=== PATIENT | male | born 1930 | race Caucasian/White ===

== ENCOUNTER → 2017-05-21 | Outpatient (CLI) | payer OTHER | LOC: FIMAGING 09:35 | PROVIDERS: ATTEND Internal Medicine | DX: I71.4 Abdominal aortic aneurysm, without rupture (principal) ==

== ENCOUNTER 2017-08-05 11:21 | Emergency (ER) | payer OTHER ==
[2017-08-05 13:09] LABS: ABSOLUTE IMMATURE GRANULOCYTES 0.07 10^3/uL (0.00-0.10); ADD DIFF? NO; ADD MORPH? NO; ADD SCAN? NO; ATYPICAL LYMPHOCYTE FLAG 10 (0-99); FRAGMENT RBC FLAG 0 (0-99); HEMATOCRIT 44.9 % (40.0-51.0); HEMOGLOBIN 15.4 g/dL (13.7-17.5); LEFT SHIFT FLG 10 (0-99); LIPEMIA HEMOLYSIS FLAG 90 (0-99); MEAN CELL HEMOGLOBIN 32.7 pg (27.9-34.1); MEAN CELL HEMOGLOBIN CONCENTR. 34.3 g/dL (32.4-36.7); MEAN CELL VOLUME 95.3 fL (81.5-99.8); MEAN PLATELET VOLUME 10.7 fL (8.7-11.7); PLATELET CLUMPS FLAG 0 (0-99); PLATELET COUNT 242 10^3/uL (150-400); RED BLOOD CELL COUNT 4.71 10^6/uL (4.40-6.38); RED CELL DISTRIBUTION WIDTH 12.5 % (11.5-15.2)
[2017-08-05] MEDS ORDERED: LABETALOL HCL 5 MG/ML 20 ML MDV IVP ONE (13:11)
--- NOTE | 2017-08-05 13:14 | EDPHY ---
H & P Time Seen by Provider: 08/05/17 13:05 HPI/ROS: CHIEF COMPLAINT: Hypertension HISTORY OF PRESENT ILLNESS: The patient is a 86-year-old male with a history of coronary artery disease status post CABG in 2007. This was complicated by perioperative stroke. He has an ongoing history of hypertension, chronic renal insufficiency and dyslipidemia. He has a mild 0.7 cm aortic aneurysm. The patient went for routine visit with this Cardiology today. He states since waking up this morning he has felt "out of it." He reports feeling lightheaded and dizzy. He did not have an episode of syncope. He denies any chest pain or shortness of breath. No abdominal pain. No weakness or numbness. No headache. At the patient's cardiology appointment Dr. Kelley noted the patient's blood pressure was elevated at [address] Patient reported the Dr. Kelley that his vision was slightly decreased but he denies any visual change to me. The patient states that he discontinued his metoprolol 4-5 weeks ago. REVIEW OF SYSTEMS: My complete review of systems is negative except as mentioned in the HPI. Past Medical/Surgical History: Includes hypertension, high trial, coronary artery disease, AFib, CVA, chronic kidney disease, mitral valve echo density, prostate cancer Past surgical history: Includes CABG, appendectomy, cholecystectomy, orthopedic surgery, prostatectomy, cataract surgery Social history: Patient smoke Smoking Status: Never smoked Physical Exam: 171/96, 63, 18, 36.3, 98 GENERAL: No acute distress, alert. HEENT: Eyes normal to inspection, normal pharynx, no signs of dehydration. NECK: No thyromegaly, no lymphadenopathy, supple. RESPIRATORY: Clear to auscultation bilaterally, no rales, rhonchi or wheezing. CVS: Regular rate and rhythm, no rubs, murmurs, or gallops. Equal pulses in both upper extremities. ABDOMEN: Soft, nontender, nondistended, no organomegaly. No pulsatile mass. BACK: Patient has some superior mid scratches.(patient states he gave these to himself.) Normal to inspection, no CVA tenderness. SKIN: Normal color, no rash, warm, dry. No pallor. EXTREMITIES: No pedal edema, no calf tenderness, no Homans sign or cords, no joint swelling. NEURO/PSYCH: Higher functions: Alert and Oriented x3. Normal speech and cognition. Normal mood and affect. Cranial nerves: Normal as tested. Cerebellar: Normal as tested. Good finger to nose, good [id number], normal gait. Peripheral exam: Normal motor exam. Normal sensation. Normal reflexes. Constitutional: Initial Vital Signs Temperature (C) 36.3 C 08/05/17 11:35 Heart Rate 63 08/05/17 11:35 Respiratory Rate 18 08/05/17 11:35 Blood Pressure 171/96 H 08/05/17 11:35 O2 Sat (%) 98 08/05/17 11:35 O2 Delivery Mode Room Air Allergies/Adverse Reactions: No Known Allergies Allergy (Verified 08/05/17 11:35) Home Medications: Medication Instructions Recorded Calcium Carbonate [Tums 500MG (*)] 500 mg PO DAILY 03/09/13 Aspirin [Aspirin 81mg (*)] 162 mg PO DAILY 03/11/13 Docusate Sodium [Colace 100 MG (*)] 100 mg PO DAILY 03/11/13 Multivitamins [Multivitamin (*)] 1 each PO DAILY 03/11/13 Atorvastatin Calcium [Lipitor 40 40 mg PO HS 07/30/15 mg (*)] Metoprolol Succinate Xr [Toprol Xl 25 mg PO DAILY 07/30/15 25 mg (*)] Metoprolol Succinate Xr [Toprol Xl 25 mg PO DAILY 15 Days #30 tab.sr 08/05/17 25 mg (*)] Medical Decision Making - Diagnostics Imaging Results: Imaging Impressions Chest X-Ray 08/05/17 13:01 Impression: Nothing acute identified. Head CT 08/05/17 13:15 Impression: 1. Old right occipital infarct, right posterior cerebral artery territory. 2. No definite acute infarct, acute hemorrhage, hydrocephalus or mass effect. 3. Cerebrovascular atherosclerosis. Findings and recommendations discussed with Emergency Department physician, Princess Gruber at 1524 hour, 08/05/2017. Final report concurs with initial preliminary interpretation. ED Course/Re-evaluation: In the emergency room in discussed possible etiologies with the patient. I answered all his questions. An IV was placed. Laboratory studies were obtained. Head CT, chest x-ray and EKG were ordered. Patient was given labetalol 10 mg IV. EKG from 1056: Rate 68. First-degree AV block. No ST or T-wave abnormalities pain Patient's laboratory studies were notable for creatinine 1.4. His CBC was otherwise unremarkable. Troponin was negative. Chest x-ray: No acute disease noted. Repeat blood pressure was 151/87. Head CT: No acute disease noted. Old infarct. The patient was doing well. He had no new complaints. I discussed case with Dr. Busch. Recommended placed the patient on metoprolol 25 mg twice daily. I discussed this plan with the patient. He felt comfortable being discharged. Differential Diagnosis: My differential includes but is not limited to hypertensive emergency, hypertensive urgency, hypertension, CVA, ACS, acute [place], dissection, aneurysm - Data Points Laboratory Results: Laboratory Results 08/05/17 12:50 08/05/17 12:50 08/05/17 08/05/17 12:50 12:50 WBC 6.83 10^3/uL 10^3/uL (3.80-9.50) RBC 4.71 10^6/uL 10^6/uL (4.40-6.38) Hgb 15.4 g/dL g/dL (13.7-17.5) Hct 44.9 % % (40.0-51.0) MCV 95.3 fL fL (81.5-99.8) MCH 32.7 pg pg (27.9-34.1) MCHC 34.3 g/dL g/dL (32.4-36.7) RDW 12.5 % % (11.5-15.2) Plt Count 242 10^3/uL 10^3/uL (150-400) MPV 10.7 fL fL (8.7-11.7) Neut % (Auto) 68.9 % % (39.3-74.2) Lymph % (Auto) 16.7 % % (15.0-45.0) [place] % (Auto) 9.8 % % (4.5-13.0) Eos % (Auto) 3.2 % % (0.6-7.6) Baso % (Auto) 0.4 % % (0.3-1.7) Nucleat RBC Rel Count 0.0 % % (0.0-0.2) Absolute Neuts (auto) 4.70 10^3/uL 10^3/uL (1.70-6.50) Absolute Lymphs (auto) 1.14 10^3/uL 10^3/uL (1.00-3.00) Absolute Monos (auto) 0.67 10^3/uL 10^3/uL (0.30-0.80) Absolute Eos (auto) 0.22 10^3/uL 10^3/uL (0.03-0.40) Absolute Basos (auto) 0.03 10^3/uL 10^3/uL (0.02-0.10) Absolute Nucleated RBC 0.00 10^3/uL 10^3/uL (0-0.01) Immature Gran % 1.0 % % (0.0-1.1) Immature Gran # 0.07 10^3/uL 10^3/uL (0.00-0.10) Sodium 149 mEq/L H mEq/L (134-144) Potassium 4.2 mEq/L mEq/L (3.5-5.2) Chloride 113 mEq/L H mEq/L (97-110) Carbon Dioxide 23 mEq/l mEq/l (22-31) Anion Gap 13 mEq/L mEq/L (8-16) BUN 23 mg/dL mg/dL (7-23) Creatinine 1.4 mg/dL H mg/dL (0.7-1.3) Estimated GFR 48 Glucose 91 mg/dL mg/dL (70-100) Calcium 9.4 mg/dL mg/dL (8.5-10.4) Troponin I < 0.012 ng/mL ng/mL (0.000-0.034) Medications Given: Discontinued Medications Labetalol HCl (Trandate Injection) 10 mg IVP ONCE ONE Stop: 08/05/17 13:12 Last Admin: 08/05/17 13:26 Dose: 10 mg Departure - Departure Disposition: Home, Routine, Self-Care Clinical Impression: Hypertensive urgency Hypertension Qualifiers: Hypertension type: unspecified Qualified Code(s): I10 - Essential (primary) hypertension Condition: Good Instructions: Hypertension (ED) Additional Instructions: Return with increasing chest pain, shortness of breath, lightheadedness, dizziness or any other concerns. Referrals: Marquis Diamond MD [Primary Care Provider] - 2-3 days without fail Prescriptions: Metoprolol Succinate Xr [Toprol Xl 25 mg (*)] 25 mg PO DAILY 15 Days #30 tab.sr
[2017-08-05 13:28] LABS: ANION GAP 13 mEq/L (8-16); CALCIUM 9.4 mg/dL (8.5-10.4); CARBON DIOXIDE 23 mEq/l (22-31); CHLORIDE 113 mEq/L (97-110); CREATININE 1.4 mg/dL (0.7-1.3); GLOMERULAR FILTRATION RATE 48; GLUCOSE 91 mg/dL (70-100); POTASSIUM 4.2 mEq/L (3.5-5.2); SODIUM 149 mEq/L (134-144)
[2017-08-05 13:39] LABS: TROPONIN I < 0.012 ng/mL (0.000-0.034)
--- NOTE | 2017-08-05 14:15 | CPEKG ---
Heart Rate: 69 RR Interval: 870 P-R Interval: 232 QRSD Interval: 82 QT Interval: 436 QTC Interval: 467 P [place]: 47 QRS [place]: 37 T Wave [place]: 116 EKG Severity - ABNORMAL ECG - EKG Impression: SINUS RHYTHM EKG Impression: FIRST DEGREE AV BLOCK EKG Impression: NONSPECIFIC T ABNORMALITIES, LATERAL LEADS Electronically Signed By: Syed Blanchard 06-Aug-2017 20:51:23
[2017-08-05 14:21] VITALS: RESP 15
[2017-08-05 16:12] VITALS: BP 153/85; PULSE 71; TEMP 97.9; O2SAT 95
== END 2017-08-05 16:12 | disposition home or self-care (01) ==
DX: I12.9 Hypertensive chronic kidney disease with stage 1 through stage 4 chronic kidney disease, or unspecified chronic kidney disease (principal); I16.0 Hypertensive urgency; I25.810 Atherosclerosis of coronary artery bypass graft(s) without angina pectoris; N18.9 Chronic kidney disease, unspecified; Z79.82 Long term (current) use of aspirin; Z85.46 Personal history of malignant neoplasm of prostate; Z86.73 Personal history of transient ischemic attack (TIA), and cerebral infarction without residual deficits
CPT/HCPCS: 70450; 71010; 93005; 96374; 99285; J3490

== ENCOUNTER 2017-08-17 11:05 | Inpatient (IN) | payer OTHER ==
[2017-08-17] MEDS ORDERED: NS 500 ML IV ONE (11:22)
--- NOTE | 2017-08-17 11:25 | CPEKG ---
Heart Rate: 70 RR Interval: 857 P-R Interval: 220 QRSD Interval: 88 QT Interval: 408 QTC Interval: 441 P [place]: 50 QRS [place]: 44 T Wave [place]: 149 EKG Severity - ABNORMAL ECG - EKG Impression: SINUS RHYTHM EKG Impression: ATRIAL PREMATURE COMPLEX EKG Impression: FIRST DEGREE AV BLOCK EKG Impression: NONSPECIFIC T ABNORMALITIES, LATERAL LEADS Electronically Signed By: Nam Vasques 17-Aug-2017 19:48:46
--- NOTE | 2017-08-17 11:28 | EDPHY ---
HPI/HX/ROS/PE/MDM Narrative: CHIEF COMPLAINT: Lightheaded HPI: The patient is an 86 y/o male with a history of hypertension and CAD post CABG in 2007 that was complicated by a perioperative stroke. He was recently seen in this ED on 08/05/17, 2 weeks ago, for pre-syncope. During this visit he had hypertension and had a normal chest x-ray and head CT. Prior to this visit he accidently stopped taking his Metoprolol for 3.5 weeks. After the ED visit he started taking it twice a day again. For the past week he has been feeling lightheaded, lethargic, and has been sleeping more than normal. Denies cough, flu like symptoms, chest pain, headache, paresthesias, numbness or other pertinent symptoms. Prior medical records reviewed including ED visit from Dr. Gruber on 08/05/17. REVIEW OF SYSTEMS: Aside from elements discussed in the HPI, a comprehensive 10-point review of systems was reviewed and is negative. PMH: Hypertension CAD, atrial fibrillation, CVA, chronic kidney disease, mitral valve echo density, prostate cancer PSH: CABG, appendectomy, cholecystectomy, prostatectomy SOCIAL HISTORY: Daughter at bedside, lives in [place], retired PHYSICAL EXAM: General: Patient is alert, in no acute distress. ENT: Eyes are normal to inspection. ENT inspection normal. Neck: Normal inspection. Full range of motion. Respiratory: No respiratory distress. Breath sounds normal bilaterally. Cardiovascular: Regular rate and rhythm. Strong peripheral pulses. Normal cap refill. Abdomen: The abdomen is nontender to palpation. There are no peritoneal signs. There are normal bowel sounds. Back: Normal to inspection. No tenderness to palpation. Skin: Normal color. No rash. Warm and dry. Extremities: Normal appearance. Full range of motion. Neuro: Oriented x3. Normal motor function. Normal sensory function. 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 No pronator drift. Portions of this note were transcribed by an ED scribe. I personally performed the history, physical exam, and medical decision making; and confirm the accuracy of the information in the transcribed note. ED Course: 1118: EKG was ordered and interpreted by myself. Please see [facility] system for official reading. 1413: Patient has an abnormal gait during road test. Brain MRI ordered. Patient' s labs are normal, TSH pending at this time. 1419: Consulted with hospitalist service, Dr. Shin accepts admission of this patient for weakness. 1425: Reassessed patient and discussed plan for Brain MRI and admission. Patient and his daughter are comfortable with this plan. MDM: This patient presents with gradual decline in alertness, energy level and ability to get out of bed. He has undergone a previous workup in the last two weeks for these symptoms which was negative, yet he continues to worsen. My exam reveals no neurologic deficits and the patient does not complain of pain or infectious symptoms. The differential here is quite broad, but I see no signs of acute CVA, ACS, PNA, sepsis, influenza, UTI or anemia. The patient clearly requires admission for further workup, and I have ordered an MRI to aid the diagnostic process. I have admitted the patient prior to this study being performed, but would not be surprised if this showed a sub-acute CVA given lack of other abnormality and history of CVA in the past. If true, the patient would certainly not be a candidate for tPA given no clear definitive onset of symptoms. - Data Points Imaging: I viewed and interpreted images myself Laboratory Results: Laboratory Results 08/17/17 11:25 08/17/17 11:25 08/17/17 08/17/17 08/17/17 11:25 11:25 11:25 WBC 8.97 10^3/uL 10^3/uL (3.80-9.50) RBC 5.14 10^6/uL 10^6/uL (4.40-6.38) Hgb 17.0 g/dL g/dL (13.7-17.5) Hct 48.1 % % (40.0-51.0) MCV 93.6 fL fL (81.5-99.8) MCH 33.1 pg pg (27.9-34.1) MCHC 35.3 g/dL g/dL (32.4-36.7) RDW 12.6 % % (11.5-15.2) Plt Count 245 10^3/uL 10^3/uL (150-400) MPV 10.6 fL fL (8.7-11.7) Neut % (Auto) 68.1 % % (39.3-74.2) Lymph % (Auto) 16.7 % % (15.0-45.0) [place] % (Auto) 11.6 % % (4.5-13.0) Eos % (Auto) 2.9 % % (0.6-7.6) Baso % (Auto) 0.4 % % (0.3-1.7) Nucleat RBC Rel Count 0.0 % % (0.0-0.2) Absolute Neuts (auto) 6.10 10^3/uL 10^3/uL (1.70-6.50) Absolute Lymphs (auto) 1.50 10^3/uL 10^3/uL (1.00-3.00) Absolute Monos (auto) 1.04 10^3/uL H 10^3/uL (0.30-0.80) Absolute Eos (auto) 0.26 10^3/uL 10^3/uL (0.03-0.40) Absolute Basos (auto) 0.04 10^3/uL 10^3/uL (0.02-0.10) Absolute Nucleated RBC 0.00 10^3/uL 10^3/uL (0-0.01) Immature Gran % 0.3 % % (0.0-1.1) Immature Gran # 0.03 10^3/uL 10^3/uL (0.00-0.10) Sodium 149 mEq/L H mEq/L (134-144) Potassium 4.1 mEq/L mEq/L (3.5-5.2) Chloride 112 mEq/L H mEq/L (97-110) Carbon Dioxide 21 mEq/l L mEq/l (22-31) Anion Gap 16 mEq/L mEq/L (8-16) BUN 35 mg/dL H mg/dL (7-23) Creatinine 1.7 mg/dL H mg/dL (0.7-1.3) Estimated GFR 39 Glucose 105 mg/dL H mg/dL (70-100) Calcium 9.8 mg/dL mg/dL (8.5-10.4) Troponin I < 0.012 ng/mL ng/mL (0.000-0.034) TSH 3.500 uIU/mL uIU/mL (0.465-4.680) Medications Given: Discontinued Medications Sodium Chloride (Ns) 500 mls @ 0 mls/hr IV EDNOW ONE; Wide Open PRN Reason: Protocol Stop: 08/17/17 11:23 Last Admin: 08/17/17 11:27 Dose: 500 mls General Time Seen by Provider: 08/17/17 11:23 Initial Vital Signs: Initial Vital Signs Temperature (C) 36.4 C 08/17/17 11:08 Heart Rate 71 08/17/17 11:08 Respiratory Rate 18 08/17/17 11:08 Blood Pressure 125/72 H 08/17/17 11:08 O2 Sat (%) 95 08/17/17 11:08 O2 Delivery Mode Room Air Allergies/Adverse Reactions: No Known Allergies Allergy (Verified 08/17/17 11:07) Home Medications: Medication Instructions Recorded Calcium Carbonate [Tums 500MG (*)] 500 mg PO DAILY 03/09/13 Aspirin [Aspirin 81mg (*)] 162 mg PO HS 03/11/13 Docusate Sodium [Colace 100 MG (*)] 100 mg PO HS 03/11/13 Multivitamins [Multivitamin (*)] 1 each PO DAILY 03/11/13 Atorvastatin Calcium [Lipitor 40 40 mg PO HS 07/30/15 mg (*)] Metoprolol Succinate Xr [Toprol Xl 12.5 mg PO BID 08/17/17 25 mg (*)] Sildenafil Citrate [Revatio 20 MG 60 - 80 mg PO DAILY PRN 08/17/17 (*)] Departure - Departure Disposition: [facility] Clinical Impression: Weakness, Lightheaded Condition: Fair Report Scribed for: Surendra Lerner Report Scribed by: Ermelinda Marquez Date of Report: 08/17/17 Time of Report: 11:28
[2017-08-17 11:40] LABS: % IMMATURE GRANULYOCYTES 0.3 % (0.0-1.1); ABSOLUTE IMMATURE GRANULOCYTES 0.03 10^3/uL (0.00-0.10); ADD DIFF? NO; ADD MORPH? NO; ADD SCAN? NO; ATYPICAL LYMPHOCYTE FLAG 0 (0-99); FRAGMENT RBC FLAG 0 (0-99); HEMATOCRIT 48.1 % (40.0-51.0); LEFT SHIFT FLG 0 (0-99); LIPEMIA HEMOLYSIS FLAG 90 (0-99); MEAN CELL HEMOGLOBIN 33.1 pg (27.9-34.1); MEAN CELL HEMOGLOBIN CONCENTR. 35.3 g/dL (32.4-36.7); MEAN CELL VOLUME 93.6 fL (81.5-99.8); MEAN PLATELET VOLUME 10.6 fL (8.7-11.7); PLATELET CLUMPS FLAG 10 (0-99); PLATELET COUNT 245 10^3/uL (150-400); RED BLOOD CELL COUNT 5.14 10^6/uL (4.40-6.38); RED CELL DISTRIBUTION WIDTH 12.6 % (11.5-15.2)
[2017-08-17 11:59] LABS: ANION GAP 16 mEq/L (8-16); CALCIUM 9.8 mg/dL (8.5-10.4); CARBON DIOXIDE 21 mEq/l (22-31); CHLORIDE 112 mEq/L (97-110); CREATININE 1.7 mg/dL (0.7-1.3); GLOMERULAR FILTRATION RATE 39; GLUCOSE 105 mg/dL (70-100); POTASSIUM 4.1 mEq/L (3.5-5.2); SODIUM 149 mEq/L (134-144)
[2017-08-17 12:09] LABS: TROPONIN I < 0.012 ng/mL (0.000-0.034)
[2017-08-17] MEDS ORDERED: ACETAMINOPHEN 325 MG TAB PO PRN (14:30)
[2017-08-17] MEDS ORDERED: ONDANSETRON DISINTEGRATING 4 MG TAB PO PRN (14:30)
[2017-08-17] MEDS ORDERED: ONDANSETRON 4 MG/2 ML VIAL IVP PRN (14:30)
[2017-08-17] MEDS ORDERED: D5W 1,000 ML IV SCH (16:30)
--- NOTE | 2017-08-17 17:01 | GHP ---
[f rep st] HISTORY AND PHYSICAL DATE OF ADMISSION: 08/17/2017 CHIEF COMPLAINT: Fatigue. HISTORY OF PRESENT ILLNESS: An 86-year-old male with history of CKD, coronary artery disease, hypertension, hyperlipidemia, who presents with several weeks of fatigue. He was sent from Cardiology Clinic to the ER on 08/05 with dizziness and presyncopal symptoms. At that time, he was noted to have hypertensive urgency after accidentally stopping his home medications for about a month. He was restarted on his metoprolol 12.5 mg twice daily, which was his prior dose. He is accompanied by his daughter today. He states that he has been dizzy and sleepy since that time. She will state he will get up and eat breakfast and then have to go back to bed. He is normally walking or riding his bike daily. 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 He denies fevers, chills, or sweats. No cough, chest pain, or palpitations. He has noted shortness of breath over several weeks, especially when lying flat is coming from the restroom back to bed. Denies any lower extremity or abdominal swelling. No PND or pillow orthopnea. He has increased urinary urgency since his ER visit but no dysuria. He traveled a couple of months ago to [place] and stayed with his daughter. REVIEW OF SYSTEMS: I completed a 10-point review of systems, negative except as noted in HPI. PAST MEDICAL HISTORY: 1. CKD with baseline creatinine 1.4-1.7, CABG 2007. 2. Perioperative stroke with no residual deficits. 3. Actually a perioperative CVA with loss of left peripheral vision, both eyes. 4. Hypertension. 5. Hyperlipidemia. 6. Aortic aneurysm 3.7 cm. 7. Prostate cancer. 8. Moderate MR. PAST SURGICAL HISTORY: CABG, appendectomy, cholecystectomy, prostatectomy and cataract surgery. 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 Normally walks and bikes daily. No alcohol, tobacco, or illicits. FAMILY HISTORY: Noncontributory. HOME MEDICATIONS: Multivitamin, metoprolol 12.5 mg b.i.d., Colace, calcium carbonate as needed, atorvastatin 40 mg at bedtime, aspirin. ALLERGIES: No known drug allergies. PHYSICAL EXAMINATION: VITAL SIGNS: Temperature 36.4, blood pressure 125/72, heart rate is 71, respirations 18, 95% on room air. GENERAL: Well-appearing male but mildly fatigued, pale, no acute distress. HEENT: PERRLA. EOMI. Oropharynx clear. No swelling or erythema. CV: Regular rate and rhythm. No murmurs, gallops, or rubs. No peripheral edema. LUNGS: Clear. No crackles, wheezing. ABDOMEN: Soft, nontender, nondistended. Positive bowel sounds. : No Raza. MUSCULOSKELETAL: 5/5 upper and lower extremity strength. NEUROLOGIC: 2 through 12 intact. PSYCHIATRIC: Alert and oriented x3. LABORATORY DATA: Sodium 149, potassium 4.1, chloride 112, carbon dioxide 21, BUN 35, creatinine 1.7, glucose 105, calcium 9.8. Troponin is less than 0.012. TSH is 3.5. WBC is 8, hemoglobin 17, hematocrit 48, platelets are 245. DIAGNOSTIC TESTING: EKG personally reviewed by me, first-degree heart block. Nonspecific ST abnormalities in lateral leads, which is old. Echocardiogram: LV cavity is small and LV intracavity gradient exists. There is moderate LVH, diastolic dysfunction. Moderate TR. RVSP is 37 mmHg. ASSESSMENT AND PLAN: 1. Fatigue, unclear etiology at this point. Denies any infectious symptoms. He is afebrile here. No evidence of anemia. TSH is normal. Troponin and EKG negative for ischemia. Will check a B12, folate, urine. Consider mononucleosis given severe fatigue, but he has no infectious symptoms. Will have PT/OT evaluate. 2. Unstable gait: Per daughter, has been unsteady on his feet using the wall. CT 08/05 showed am old right occipital infarct. Right posterior cerebral artery territory. No acute hemorrhage at that time. MRI is pending today. Will have PT/OT evaluate. 3. History of hypertension, normotensive today. We will resume home medications. 4. chronic kidney disease, creatinine is at baseline. 5. History of coronary artery disease. Resume aspirin, statin, and beta boo. 6. Hyperlipidemia, statin. 7. History of prostate cancer, status post prostatectomy. 8. Shortness of breath: This sounds new over the last couple of weeks. We will check a BNP; if high, check TTE. 9. Diet: Regular. 10. Deep vein thrombosis prophylaxis, SCDs. 11. Disposition: Patient warrants inpatient admission given fatigue, unstable gait requiring MRI, PT/OT. /[id number]/MODL MTDD
[2017-08-17] MEDS ORDERED: hydrALAZINE 20 MG/ML VIAL IVP PRN (18:01)
[2017-08-17] MEDS ORDERED: LABETALOL HCL 5 MG/ML 20 ML MDV IVP PRN (18:22)
[2017-08-17 19:04] LABS: FOLATE SERUM > 20.00 ng/mL (2.80 - >20.00)
[2017-08-17] MEDS: METOPROLOL SUCCINATE XR 25 MG TAB PO SCH ×2 (19:31→20:52)
[2017-08-17 20:10] LABS: ANION GAP 16 mEq/L (8-16); GLOMERULAR FILTRATION RATE 48
[2017-08-17 20:14] LABS: COLOR YELLOW; LEUKOCYTE ESTERASE,URINE NEGATIVE (NEGATIVE); NITRITE,URINE NEGATIVE (NEGATIVE)
[2017-08-17] MEDS ORDERED: PNEUMOC 13-VAL CONJ-DIP CRM/PF 0.5 ML SYR IM ONE (20:15)
--- NOTE | 2017-08-17 20:24 | HOSPPROG ---
Hospitalist Progress Note Assessment/Plan: Addendum: MRI revealed acute right thalamic CVA. Suspect HTN as etiology. Spoke with Dr. Shah with Neuro. Given BP is driver guard will treat with goal SBP<180. Start full- dose ASA. 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 Neuro to eval in AM Discussed with patient and daughter bedside Critical care time spent 35 min reviewing imaging with Radiology, d/w Dr. Shah, pt and family Objective: Vital Signs Temp Pulse Resp BP Pulse Ox 36.6 C 60 16 176/80 H 97 08/17/17 20:06 08/17/17 20:06 08/17/17 20:06 08/17/17 20:06 08/17/17 20:06 08/16/17 08/17/17 08/18/17 05:59 05:59 05:59 Intake Total 500 Balance 500 ICD10 Worksheet Patient Problems: Problems Problem Status Onset Lightheaded Acute Weakness Acute Abdominal pain Acute Acute cholecystitis Acute
[2017-08-17] MEDS ORDERED: ASPIRIN 81 MG CHEWABLE TAB PO SCH (21:00)
[2017-08-17] MEDS ORDERED: DOCUSATE SODIUM 100 MG CAP PO SCH (21:00)
[2017-08-17] MEDS ORDERED: ATORVASTATIN CALCIUM 40 MG TAB PO SCH (21:00)
[2017-08-17 21:10] LABS: CALCIUM 9.2 mg/dL (8.5-10.4); CARBON DIOXIDE 14 mEq/l (22-31); CHLORIDE 116 mEq/L (97-110); CREATININE 1.4 mg/dL (0.7-1.3); GLUCOSE 138 mg/dL (70-100); POTASSIUM 4.6 mEq/L (3.5-5.2); SODIUM 146 mEq/L (134-144)
[2017-08-17 22:50] LABS: ALANINE AMINOTRANSFERASE 26 IU/L (21-72); ALBUMIN 4.5 g/dL (3.5-5.0); ALKALINE PHOSPHATASE 80 IU/L (38-126); ASPARTATE AMINOTRANSFERASE 17 IU/L (17-59); BILIRUBIN,TOTAL 1.1 mg/dL (0.1-1.4); BILIRUBIN-CONJUGATED 0.4 mg/dL (0.0-0.5); BILIRUBIN-UNCONJUGATED 0.7 mg/dL (0.0-1.1); TOTAL PROTEIN 7.3 g/dL (6.3-8.2)
[2017-08-18 05:52] LABS: ANION GAP 12 mEq/L (8-16); CALCIUM 8.9 mg/dL (8.5-10.4); CARBON DIOXIDE 20 mEq/l (22-31); CHLORIDE 113 mEq/L (97-110); CHOLESTEROL 112 mg/dL (140-220); CHOLESTEROL/HDL RATIO 3.73 RATIO (1.00-4.97); CREATININE 1.4 mg/dL (0.7-1.3); GLOMERULAR FILTRATION RATE 48; GLUCOSE 83 mg/dL (70-100); HIGH DENSITY LIPOPROTEIN 30 mg/dL (40-65); LDL/HDL RATIO 2.07 RATIO (1.00-3.64); LOW DENSITY LIPOPROTEIN 62 mg/dL (80-100); NON-HIGH DENSITY LIPOPROTEIN 82 mg/dL (90-129); POTASSIUM 3.8 mEq/L (3.5-5.2); SODIUM 145 mEq/L (134-144); TRIGLYCERIDE 103 mg/dL (40-150); VERY LOW DENSITY LIPOPROTEINS 20 mg/dL (8-25)
[2017-08-18] MEDS ORDERED: CALCIUM CARBONATE 500 MG CHEWABLE TAB PO SCH (09:00)
[2017-08-18] MEDS ORDERED: MULTIVITAMINS 1 EACH TAB PO SCH (09:00)
[2017-08-18] MEDS ORDERED: ASPIRIN 81 MG CHEWABLE TAB PO SCH (09:00)
[2017-08-18] MEDS ORDERED: ASPIRIN 325 MG TAB PO SCH (09:00)
[2017-08-18] MEDS: METOPROLOL SUCCINATE XR 25 MG TAB PO SCH (09:28)
--- NOTE | 2017-08-18 11:23 | PDMN ---
Medical Necessity Medical necessity: Patient [place] inpatient criteria [place] physician note [place] [facility] [place]85 Stroke: Ischemic - (patient presented w/unsteady gait and weakness; MRI shows acute R thalamic infarct; anticipated LOS > 2 midnights for neuro eval, PT/OT, ongoing BP treatment.
[2017-08-18 11:28] VITALS: BP 147/71; RESP 15; TEMP 96.7
--- NOTE | 2017-08-18 11:54 | ASMTCMCOM ---
CM Note CM Note Notes: Patient admitted with an acute right thalamic CVA with hypertension as suspected cause. Neuro to see today. I spoke with patient and his Sima. 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 They have also hired some homemaking help 5 days/week. Their daughter lives locally. OT eval recommended home care; PT and speech are pending. Patient was amenable to the idea of skilled homecare. I called and spoke with Anna at [facility] who can likely accept patient for whatever services he needs. Will await other evals and confirm with [facility]. Current CM Discharge plan: home with home health Date Signed: 08/18/2017 11:54 AM Electronically Signed By:Elisa Mcmanus RN
[2017-08-18 12:11] VITALS: PULSE 62; O2SAT 93
--- NOTE | 2017-08-18 12:35 | PDIAF ---
- Diagnosis Diagnosis: cva Code Status: Full Code - Medication Management Discharge Medications: Medications to Continue on Transfer Calcium Carbonate [Tums 500MG (*)] 500 mg PO DAILY 03/09/13 [Last Taken 08/16/17 ] Docusate Sodium [Colace 100 MG (*)] 100 mg PO HS 03/11/13 [Last Taken 08/16/17] Multivitamins [Multivitamin (*)] 1 each PO DAILY 03/11/13 [Last Taken 08/16/17] Atorvastatin Calcium [Lipitor 40 mg (*)] 40 mg PO HS 07/30/15 [Last Taken ] Metoprolol Succinate Xr [Toprol Xl 25 mg (*)] 12.5 mg PO BID 08/17/17 [Last Taken 08/16/17] Sildenafil Citrate [Revatio 20 MG (*)] 60 - 80 mg PO DAILY PRN 08/17/17 [Last Taken Unknown] Clopidogrel Bisulfate [Plavix (*)] 75 mg PO DAILY #30 tab 08/18/17 [Last Taken Unknown] Discharge Medications: Refer to the Discharge Home Medication list for PRN reason. - Orders Services needed: Home Care, Physical Therapy, Occupational Therapy Home Care Face to Face: I certify that this patient was under my care and that I had the required [id number] encounter meeting the encounter requirements on the discharge day. My findings support the fact that the patient is homebound as defined in Home Care Face to Face Continued: CMS Chapter 7 Medicare Benefits Manual 30.1.1 , The condition of the patient is such that there exists a normal inability to leave home and consequently, leaving home would require a considerable and taxing effort. Isolation Type: None Diet Recommendation: cardiac -low fat low salt Diet Texture: Regular Texture Diet - Follow Up Care Current Providers and Referrals: Marquis Diamond MD [Primary Care Provider] - As per Instructions Paige Kelley MD [Medical Doctor] - Goran Shah MD [Medical Doctor] -
--- NOTE | 2017-08-18 14:32 | GCON ---
[f rep st] CONSULTATION NEUROLOGY CONSULT DATE OF CONSULTATION: 08/18/2017 REFERRING PHYSICIAN: Kimberly Shin MD CHIEF COMPLAINT: Thalamic stroke. HISTORY OF PRESENT ILLNESS: The patient is a very pleasant 86-year-old gentleman who has a cardiac history including a postoperative round of atrial fibrillation after CABG many years ago from what I glean in the medical record. In addition, from what I understand, there is no evidence of ongoing paroxysmal atrial fibrillation. He does have significant hypertension and had accidentally discontinued his metoprolol about a month ago and had a hypertensive urgency that he was sent to the ED for on 08/05/2017. He was treated medically and discharged home with normalized blood pressure. In addition, he does have a history of a significant right posterior infarct in his brain. Since being at home because of his chronic left visual field defect and continued lightheadedness, he came back to the ER and was admitted again with very high blood pressures and an MRI showed what was likely an incidental acute right thalamic infarct. He had no symptoms referable to this thalamic infarct. Specifically, there was no left-sided sensory loss, motor symptoms, or pain. He simply felt lightheaded which had improved with medical treatment of his blood pressure. REVIEW OF SYSTEMS: A 10-point review of systems was done and only pertinent to the HPI. For Past Medical History, Social History, Family History, home medications, allergies, please see Dr. Shin's H and P dated 08/17/2017. PHYSICAL EXAMINATION: VITAL SIGNS: Blood pressure is 134/77. He is afebrile at 36.4, heart rate 66. There has been no AFib while in the hospital here. Respiratory rate 12. GENERAL: In no acute distress. Very pleasant gentleman. NEUROLOGIC: Higher mental function: He is awake and alert. No aphasia. Cranial nerves: He has a left visual field cut. Motor: He has no focal weakness or sensory loss. Normal coordination in his upper extremities. IMPRESSION/PLAN: 1. 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 2. Hypertension and hypertensive emergency. Overall, my impression is that the patient has had end-organ dysfunction in the setting of hypertensive emergency with an acute lacunar infarct in the right thalamus. Fortunately, he has no symptoms referable to this thalamic infarct. Therefore, it would be a silent infarction. This occurred while on 2 baby aspirins daily and, as mentioned above, in the setting of him stopping his blood pressure medication inadvertently leading to the hypertensive crisis. I did speak to his agency cashier and confirmed that there has been no evidence of paroxysmal atrial fibrillation over the years since his coronary bypass surgery where he had a postoperative run of atrial fibrillation, apparently. I discussed with the patient other tests we could do for a stroke workup including vessel imaging. He understood the counseling, and declined angiography or carotid ultrasound as he would not wish to have a carotid endarterectomy or percutaneous stroke interventions at this point -- even if he did have significant obstruction. The patient deferred repeat echocardiogram and would like to discuss this with cardiology as outpatient. He was not interested in any aggressive interventions now. Going forward, I recommend we switch his 2 baby aspirins daily to Plavix 75 mg daily for vascular prophylaxis. We discussed potential benefits, alternatives, and risks with Plavix. In addition, I spoke to his agency cashier about further monitoring for paroxysmal atrial fibrillation. They will see him as an outpatient after discharge to discuss an implantable loop recorder for screening PAF. He will have PT and OT evaluations in regard to disposition. Plan discussed at length with the patient and his primary team along with Cardiology. No further recommendations now. We will sign off and follow up as needed. Please do not hesitate to call if there are any questions or changes in neurologic status with this very pleasant patient. Thank you for the consultation. Seventy total minutes floor time today in reviewing outpatient and inpatient records, MRI imaging, direct counseling with the patient, and coordination of care. /[id number]/MODL MTDD
--- NOTE | 2017-08-18 16:28 | ASDISCHSUM ---
Discharge Information Plan Status:Home with Home Health Medically Cleared to Leave:08/17/2017 Discharge Date:08/18/2017 03:00 PM CM D/C Disposition: ADT D/C Disposition:Home Health Service Projected Discharge Date:08/18/2017 11:00 AM Transportation at D/C: Discharge Delay Reason: Follow-Up Date:08/18/2017 11:00 AM Discharge Slot: Final Diagnosis: Placement Information Referral Type:*Home Health Care Services Referral ID:[id number] Provider Name:[facility] Address 1:[address] [facility] [address] Address 2: City:[place] Selection Factors: State:[place] Patient Contact Information Contact Name:EVELINA Relationship: Address:[address] Work Phone: City:[place] Alternate Phone: State/Zip Code:[place] [address] Email: Financial Information Financial Class:Medicare Advantage Plans Primary Plan Desc:[employer] [facility] [employer] Primary Plan Number:[id number] Secondary Plan Desc: Secondary Plan Number: Assessment Information [facility] CM Progress Note CM Note CM Note Notes: Patient admitted with an acute right thalamic CVA with hypertension as suspected cause. Neuro to see today. I spoke with patient and his Sima. 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 They have also hired some homemaking help 5 days/week. Their daughter lives locally. OT eval recommended home care; PT and speech are pending. Patient was amenable to the idea of skilled homecare. I called and spoke with Anna at [facility] who can likely accept patient for whatever services he needs. Will await other evals and confirm with [facility]. Current CM Discharge plan: home with home health Date Signed: 08/18/2017 11:54 AM Electronically Signed By:Elisa Mcmanus RN Intervention Information
--- NOTE | 2017-08-18 18:24 | ECHO ---
[email or web address] [address] [address] Main: [phone] Fax: Transthoracic Echocardiogram Name: WILMA VIDALES MR#: [id number] Study Date: 08/18/2017 Study Time: 08:45 AM Date of : 1930 Age: 86 year(s) Height: 180.3 cm (71 in.) Weight: 80.74 kg (178 lb.) BSA: 2.01 m2 Gender: Male Examination: Echo Indication: Acute thalamic stroke Image Quality: Contrast: Requested by: Kimberly Shin BP: 134 mmHg/77 mmHg Heart Rate: Rhythm: Indication: Acute thalamic stroke Procedure Staff Locksmith: Genna Peña Physician: Zafar Mann Requesting Provider: Conclusions: Normal size left ventricle. Mild concentric LV hypertrophy. Normal global systolic LV function. EF is 76 %. Normal RV function. The left atrium is normal in size. An agitated saline study was performed and was negative for intracardiac shunting. The right atrium is normal in size. Measurements: Chambers Valvular Assessment AV/MV Valvular Assessment TV/PV Normal Normal Normal Name Value Range Name Value Range Name Value Range Ao Cait (MM): 3.8 cm (2.2 cm-3.7 AV Vmax: 1.72 m/s (1 m/s-1.7 TR Vmax: 2.43 mm/s ( - ) cm) m/s) TR PGmax: 24 mmHg ( - ) IVSd (2D): 1.3 cm (0.6 cm-1.1 AV maxP mmHg ( - ) syst. PAP: 29 mmHg ( - ) cm) MV E Vmax: 0.52 m/s ( - ) LVDd (2D): 4.1 cm (4.2 cm-5.9 MV A Vmax: 0.85 m/s ( - ) cm) MV E/A: 0.61 ( - ) LVDs (2D): 2.1 cm (2.1 cm-4 cm) LVPWd (2D): 1.1 cm (0.6 cm-1 cm) LVEF (MOD4): 76 % (>=55 %) Continued Measurements: Chambers Valvular Assessment AV/MV Valvular Assessment TV/PV Name Value Name Value Name Value LADs: 3.7 cm MV E' Septal: 0.07 m/s CVP (est.): 5 mmHg Patient: WILMA VIDALES Study Date: 08/18/2017 Page 1 of 2 08:45 AM LADs Lon.9 cm MV E/E' Septal: 7.50 LA Area: 17.6 cm2 MV E/E' Lateral: 7.30 Findings: Left Ventricle: Normal size left ventricle. Mild concentric LV hypertrophy. Normal global systolic LV function. EF is 76 %. No regional wall motion abnormality. Grade 1 diastolic dysfunction (abnormal relaxation). Right Ventricle: Normal size right ventricle. Normal RV function. Left Atrium: The left atrium is normal in size. An agitated saline study was performed and was negative for intracardiac shunting. Right Atrium: The right atrium is normal in size. Mitral Valve: There is mild thickening of the mitral valve leaflets. Mild mitral annular calcification. Mild mitral valve regurgitation is present. Aortic Valve: Mild aortic cusp calcification is noted. The aortic valve is tri-leaflet. Tricuspid Valve: The tricuspid valve is normal in appearance and function. Mild tricuspid regurgitation is present. Pulmonic Valve: The pulmonic valve is normal in appearance and function. Trivial pulmonic valve regurgitation. Aorta: The aorta is normal. Pericardium: No pericardial effusion. (No Signature Object) Patient: WILMA VIDALES Study Date: 08/18/2017 Page 2 of 2 08:45 AM [id number]
--- NOTE | 2017-08-19 02:33 | GDS ---
[f rep st] DISCHARGE SUMMARY DISCHARGE DIAGNOSES: 1. Acute cerebrovascular accident, lacunar infarct in the right thalamus. 2. 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 3. Chronic kidney disease. 4. Coronary artery disease, status post CABG. 5. Hypertension. 6. Hyperlipidemia. 7. Chronic aortic aneurysm. 8. History of prostate cancer. 9. Moderate mitral regurgitation. HISTORY OF PRESENT ILLNESS: An 86-year-old male, who presented on 08/17/2017, with complaints of fat igue. For details of the patient's initial presentation, please see the history and physical dated 1 10/18/2016. CONSULTATIVE SERVICES: Neurology. PROCEDURES: MRI of the brain on 08/17/2017, which shows an acute right-sided thalamic infarct. HOSPITAL COURSE: By issue: 1. Acute CVA. Patient was seen by Neurology, PT/OT, and we consulted with his outpatient cardiologi st, Dr. Kelley. Patient was monitored overnight on telemetry and remained in sinus rhythm. He will be discharged on Plavix therapy and follow up with Dr. Kelley to discuss a LINQ monitor and continued on his statin therapy already prescribed prior to hospitalization. 2. Coronary artery disease. Will continue his Plavix, statin, and beta blockade. 3. Hypertension. Patient had self-discontinued his beta-boo in the outpatient setting. We susp ect this was the root cause of his new CVA as a hypertensive lacunar infarct. Patient has been re-in itiated on that medication, and systolic blood pressures have been well controlled in the one-teens t o 130s. MEDICATIONS: At the time of disposition, please reference the med rec printed on 08/18/2017 FOLLOWUP APPOINTMENTS: 1. Dr. Kelley for discussions related to LINQ monitor and atrial fib monitoring. 2. Dr. Shah, Neurology, for outpatient monitoring of his CVA. 3. With primary care provider for outpatient BP monitoring post disposition. PENDING STUDIES: At the time of this dictation are none. TIME SPENT: I spent greater than 30 minutes in the planning and coordination of this discharge. /[id number]/MODL
[2017-08-19] MEDS ORDERED: CLOPIDOGREL BISULFATE 75 MG TAB PO SCH (09:00)
== END 2017-08-18 15:00 | disposition home health service (06) | DRG 304 ==
LOC: OBSVTOIN 14:46 → F3E 17:35
PROVIDERS: ADMIT Internal Medicine; ATTEND Hospitalist
DX: I16.1 Hypertensive emergency (principal); I63.8 Other cerebral infarction; T44.7X Poisoning by, adverse effect of and underdosing of beta-adrenoreceptor antagonists; I69.898 Other sequelae of other cerebrovascular disease; H53.453 Other localized visual field defect, bilateral; Z79.82 Long term (current) use of aspirin; I12.9 Hypertensive chronic kidney disease with stage 1 through stage 4 chronic kidney disease, or unspecified chronic kidney disease; N18.9 Chronic kidney disease, unspecified; I25.10 Atherosclerotic heart disease of native coronary artery without angina pectoris; Z95.1 Presence of aortocoronary bypass graft; I10 Essential (primary) hypertension; E78.5 Hyperlipidemia, unspecified; I71.4 Abdominal aortic aneurysm, without rupture; I34.0 Nonrheumatic mitral (valve) insufficiency; Z85.46 Personal history of malignant neoplasm of prostate; Z23 Encounter for immunization
CPT/HCPCS: 82607-90; 97161-GP; 97165-GO; G0009; G8978-GP-CI; G8979-GP-CI; G8987-GO-CJ; G8988-GO-CI; J3490

== ENCOUNTER 2017-10-25 18:36 | Observation (INO) | payer OTHER ==
--- NOTE | 2017-10-25 19:52 | CPEKG ---
Heart Rate: 74 RR Interval: 811 P-R Interval: 236 QRSD Interval: 84 QT Interval: 392 QTC Interval: 435 P [place]: 53 QRS [place]: 39 T Wave [place]: 102 EKG Severity - ABNORMAL ECG - EKG Impression: SINUS RHYTHM EKG Impression: FIRST DEGREE AV BLOCK Electronically Signed By: Mahad Hart 25-Oct-2017 22:15:36
--- NOTE | 2017-10-25 21:55 | EDPHY ---
H & P Stated Complaint: high blood pressure Time Seen by Provider: 10/25/17 20:37 HPI/ROS: CHIEF COMPLAINT: High blood pressure, dizziness HISTORY OF PRESENT ILLNESS: The patient presents to the ED with a 1 day history of high blood pressure and dizziness. The patient describes some sensation of disequilibrium. He denies any focal numbness or weakness. He denies any recent illness. He does report associated nausea and generalized malaise. The patient does have a history of stroke in June of 2017. The patient also has a history of hypertension. The patient has no complaints of chest pain, shortness of breath, fever, cough or congestion. REVIEW OF SYSTEMS: A comprehensive 10 point review of systems is otherwise negative aside from elements mentioned in the history of present illness. Source: Patient - Personal History Current Tetanus/Diphtheria Vaccine: Yes Current Tetanus Diphtheria and Acellular Pertussis (TDAP): Yes - Medical/Surgical History Hx Asthma: No Hx Chronic Respiratory Disease: No Hx Diabetes: No Hx Cardiac Disease: Yes Hx Renal Disease: Yes Hx Cirrhosis: No Hx Alcoholism: No Hx HIV/AIDS: No Hx Splenectomy or Spleen Trauma: No Other PMH: HTN, cholesterol, CAD, CABG, hx postoperative afib after CABG, appendectomy, CVA, chronic kidney disease stage III with creatinine 1.4 at baseline, mitral valve echodensity, prostate cancer in 2004, cholecystectomy - Social History Smoking Status: Never smoked - Physical Exam Exam: General Appearance: Alert, no distress Eyes: Pupils equal and round no pallor or injection ENT, Mouth: Mucous membranes moist Respiratory: There are no retractions, lungs are clear to auscultation Cardiovascular: Regular rate and rhythm Gastrointestinal: Abdomen is soft and nontender, no masses, bowel sounds normal Neurological: Alert and oriented x4, 5/5 strength noted all 4 extremities, cranial nerves 2-12 intact, normal cerebellar function Skin: Warm and dry, no rashes Musculoskeletal: Neck is supple nontender Extremities: symmetrical, full range of motion Constitutional: Initial Vital Signs Temperature (C) 36.4 C 10/25/17 19:15 Heart Rate 74 10/25/17 19:15 Respiratory Rate 16 10/25/17 19:15 Blood Pressure 170/93 H 10/25/17 19:15 O2 Sat (%) 93 10/25/17 19:15 O2 Delivery Mode Room Air Allergies/Adverse Reactions: No Known Allergies Allergy (Verified 02/26/18 19:18) Home Medications: Medication Instructions Recorded Calcium Carbonate [Tums 500MG (*)] 500 mg PO DAILY 03/09/13 Docusate Sodium [Colace 100 MG (*)] 100 mg PO HS 03/11/13 Multivitamins [Multivitamin (*)] 1 each PO DAILY 03/11/13 Atorvastatin Calcium [Lipitor 40 40 mg PO HS 07/30/15 mg (*)] Metoprolol Succinate Xr [Toprol Xl 12.5 mg PO BID 08/17/17 25 mg (*)] Sildenafil Citrate [Revatio 20 MG 60 - 80 mg PO DAILY PRN 08/17/17 (*)] Clopidogrel Bisulfate [Plavix (*)] 75 mg PO DAILY #30 tab 08/18/17 Medical Decision Making - Diagnostics EKG Interpretation: EKG: Complete interpretation has been separately recorded in the [employer] archive. Summary impression: Sinus rhythm, first-degree AV block, arrhythmia Imaging Results: Imaging Impressions Head CT 10/25/17 21:51 Impression: Stable noncontrast CT of the brain. Prior large right occipital lobe ischemic infarction, without acute abnormality. Results called to Dr. Dionisio Sesay at 10:18 PM at the time of the interpretation. ED Course/Re-evaluation: The patient presents the ED with complaints of nausea, high blood pressure and slight disequilibrium. The patient is noted to be neurologically intact without any acute findings on his neuro exam. The patient's EKG demonstrates a sinus rhythm. I reviewed the results of his hospitalization in July with the patient was found to have an acute lacunar infarct from his hypertension. He was having some gait instability at the time of that presentation. The patient is currently on Plavix, a beta-boo and statin therapy. The patient was taken for noncontrast head CT scan which demonstrates no evidence of intracranial hemorrhage. An old occipital infarct is noted. Images reviewed by myself and discussed with radiologist Dr. Hernandez Gurrola. The patient presents to the ED with hypertension and symptoms of gait instability. I appreciate no heart cerebellar findings on his exam. I do feel the patient should be admitted to the hospital for observation of his blood pressure this evening. The patient continues to have symptoms an MRI may be indicated. The patient does have renal insufficiency and I do not feel that performing the CT angiogram this evening is warranted. His NIH stroke scale is 0 and he would not be a candidate for thrombolytics therapy. He was given aspirin in addition to his Plavix. Consultation was made with the hospitalist service. I spoke with Dr. Ng at 11:40 p.m.. Differential Diagnosis: Differential diagnosis considered includes stroke, TIA, metabolic abnormality - Data Points Laboratory Results: Laboratory Results 10/25/17 22:13 10/25/17 22:13 10/25/17 10/25/17 22:13 22:13 WBC 6.90 10^3/uL 10^3/uL (3.80-9.50) RBC 4.84 10^6/uL 10^6/uL (4.40-6.38) Hgb 15.3 g/dL g/dL (13.7-17.5) Hct 45.6 % % (40.0-51.0) MCV 94.2 fL fL (81.5-99.8) MCH 31.6 pg pg (27.9-34.1) MCHC 33.6 g/dL g/dL (32.4-36.7) RDW 13.1 % % (11.5-15.2) Plt Count 229 10^3/uL 10^3/uL (150-400) MPV 10.3 fL fL (8.7-11.7) Neut % (Auto) 58.7 % % (39.3-74.2) Lymph % (Auto) 22.6 % % (15.0-45.0) [place] % (Auto) 14.2 % H % (4.5-13.0) Eos % (Auto) 3.6 % % (0.6-7.6) Baso % (Auto) 0.6 % % (0.3-1.7) Nucleat RBC Rel Count 0.0 % % (0.0-0.2) Absolute Neuts (auto) 4.05 10^3/uL 10^3/uL (1.70-6.50) Absolute Lymphs (auto) 1.56 10^3/uL 10^3/uL (1.00-3.00) Absolute Monos (auto) 0.98 10^3/uL H 10^3/uL (0.30-0.80) Absolute Eos (auto) 0.25 10^3/uL 10^3/uL (0.03-0.40) Absolute Basos (auto) 0.04 10^3/uL 10^3/uL (0.02-0.10) Absolute Nucleated RBC 0.00 10^3/uL 10^3/uL (0-0.01) Immature Gran % 0.3 % % (0.0-1.1) Immature Gran # 0.02 10^3/uL 10^3/uL (0.00-0.10) Sodium 146 mEq/L H mEq/L (135-145) Potassium 3.8 mEq/L mEq/L (3.5-5.2) Chloride 111 mEq/L H mEq/L (97-110) Carbon Dioxide 23 mEq/l mEq/l (22-31) Anion Gap 12 mEq/L mEq/L (8-16) BUN 27 mg/dL H mg/dL (7-23) Creatinine 1.4 mg/dL H mg/dL (0.7-1.3) Estimated GFR 48 Glucose 87 mg/dL mg/dL (70-100) Calcium 9.8 mg/dL mg/dL (8.5-10.4) Troponin I < 0.012 ng/mL ng/mL (0.000-0.034) Departure - Departure Disposition: [facility] Acute Clinical Impression: Lightheaded, Hypertension Condition: Good Referrals: Marquis Diamond MD [Primary Care Provider] - As per Instructions
[2017-10-25 22:21] LABS: PLATELET COUNT 229 10^3/uL (150-400)
[2017-10-25] MEDS ORDERED: ASPIRIN 81 MG CHEWABLE TAB PO ONE (23:33)
[2017-10-25] MEDS ORDERED: ACETAMINOPHEN 325 MG TAB PO PRN (23:59)
[2017-10-25] MEDS ORDERED: ONDANSETRON 4 MG/2 ML VIAL IVP PRN (23:59)
[2017-10-25] MEDS ORDERED: HYDROCODONE/APAP 5/325 TAB PO PRN (23:59)
[2017-10-26] MEDS ORDERED: hydrALAZINE 20 MG/ML VIAL IVP PRN (00:02)
[2017-10-26 03:48] LABS: PLATELET COUNT 214 10^3/uL (150-400)
[2017-10-26] MEDS ORDERED: 1/2 NS 1,000 ML IV SCH (04:45)
--- NOTE | 2017-10-26 08:18 | PDGENHP ---
History and Physical - Chief Complaint High blood pressure, dizziness - History of Present Illness Source-patient provides majority of the history appears reliable. His EMR was reviewed and case discussed with ED provider. HPI - this is a pleasant 86-year-old gentleman with past medical history significant for HTN, HLD, CAD status post CABG, history of CVA in 2007 and 2016 who presents to the emergency department today with complaints of increasing dizziness elevated blood pressures and a more unsteady gait than normal. Patient denies any headache, just slightly worsened vision on the left peripheral more. Patient with a residual deficit from his previous CVA. He denies any other numbness tingling, focal weakness. Patient does report a little bit of she muscle aching to his right thigh and is concerned his statin may be affecting his muscles. Patient also reports some increased blood pressures this evening. He reports that he recently changed his metoprolol from 12.5mg twice daily to daily. Patient denies any increased fatigue. No dyspnea on exertion. No lower extremity edema. No orthopnea. History Information - Allergies/Home Medication List Allergies/Adverse Reactions: No Known Allergies Allergy (Verified 10/25/17 19:18) Home Medications: Calcium Carbonate [Tums 500MG (*)] 500 mg PO DAILY 03/09/13 [Last Taken 10/25/17 ] Docusate Sodium [Colace 100 MG (*)] 100 mg PO HS 03/11/13 [Last Taken 10/25/17] Multivitamins [Multivitamin (*)] 1 each PO DAILY 03/11/13 [Last Taken 10/25/17] Atorvastatin Calcium [Lipitor 40 mg (*)] 40 mg PO HS 07/30/15 [Last Taken ] Metoprolol Succinate Xr [Toprol Xl 25 mg (*)] 12.5 mg PO BID 08/17/17 [Last Taken 10/25/17 21:00] Sildenafil Citrate [Revatio 20 MG (*)] 60 - 80 mg PO DAILY PRN 08/17/17 [Last Taken Unknown] I have personally reviewed and updated: family history, medical history, social history, surgical history - Past Medical History Additional medical history: HTN, HLD, CAD s/p CABG, 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 Remains quite active exercising several times weekly. Cor status full Review of Systems Review of Systems: ROS: 10pt was reviewed & negative except for what was stated in HPI & below Constitutional: Reports: weight loss (Patient reports use some slightly decreased weight loss unintentional with recent medication changes. He denies any fatigue. No significant change in diet.) Physical Exam Physical Exam: Selected Entries 10/25/17 19:15 Blood Pressure Automatic Method Heart Rate 74 Respiratory 16 Rate O2 Sat (%) 93 Temperature (C) 36.4 C Blood Pressure 170/93 H Mean Arterial 118 H Pressure (MAP) O2 Delivery Room Air Mode Temperature Oral Source Temp Pulse Resp BP Pulse Ox 36.5 C 63 17 157/88 H 94 10/26/17 04:32 10/26/17 04:32 10/26/17 04:32 10/26/17 04:45 10/26/17 04:32 Constitutional: no apparent distress, appears nourished, other (NAD. Pleasant elderly gentleman is lying quietly in bed. Appears fatigued, woken from sleep.) , No uncomfortable Eyes: PERRL, anicteric sclera, EOMI Ears, Nose, Mouth, Throat: moist mucous membranes, hard of hearing, No poor dentition Cardiovascular: regular rate and rhythym, systolic murmur, bradycardia, No edema Peripheral Pulses: 2+: dorsalis-pedis (R), dorsalis-pedis (L) Respiratory: no respiratory distress, no rales or rhonchi, clear to auscultation , No reduced air movement Gastrointestinal: normoactive bowel sounds, soft, non-tender abdomen, no palpable masses, No tenderness, No distension Genitourinary: no bladder tenderness, No mcmahan in urethra Skin: warm, normal color, no rashes or abrasions Musculoskeletal: full muscle strength, No generalized weakness Neurologic: AAOx3, sensation intact bilaterally, CN II-XII Intact (Right left eyelid drooping but cranial nerves intact and symmetric bilaterally.), No weakness, No facial droop Psychiatric: not anxious, not encephalopathic, thought process linear Lab Data & Imaging Review 10/26/17 03:26 10/26/17 03:26 WBC 6.41 10^3/uL (3.80-9.50) 10/26/17 03:26 RBC 4.36 10^6/uL (4.40-6.38) L 10/26/17 03:26 Hgb 13.5 g/dL (13.7-17.5) L 10/26/17 03:26 Hct 40.7 % (40.0-51.0) 10/26/17 03:26 MCV 93.3 fL (81.5-99.8) 10/26/17 03:26 MCH 31.0 pg (27.9-34.1) 10/26/17 03:26 MCHC 33.2 g/dL (32.4-36.7) 10/26/17 03:26 RDW 12.9 % (11.5-15.2) 10/26/17 03:26 Plt Count 214 10^3/uL (150-400) 10/26/17 03:26 MPV 10.7 fL (8.7-11.7) 10/26/17 03:26 Neut % (Auto) 54.2 % (39.3-74.2) 10/26/17 03:26 Lymph % (Auto) 24.0 % (15.0-45.0) 10/26/17 03:26 Edwards % (Auto) 16.1 % (4.5-13.0) H 10/26/17 03:26 Eos % (Auto) 4.8 % (0.6-7.6) 10/26/17 03:26 Baso % (Auto) 0.6 % (0.3-1.7) 10/26/17 03:26 Nucleat RBC Rel Count 0.0 % (0.0-0.2) 10/26/17 03:26 Absolute Neuts (auto) 3.47 10^3/uL (1.70-6.50) 10/26/17 03:26 Absolute Lymphs (auto) 1.54 10^3/uL (1.00-3.00) 10/26/17 03:26 Absolute Monos (auto) 1.03 10^3/uL (0.30-0.80) H 10/26/17 03:26 Absolute Eos (auto) 0.31 10^3/uL (0.03-0.40) 10/26/17 03:26 Absolute Basos (auto) 0.04 10^3/uL (0.02-0.10) 10/26/17 03:26 Absolute Nucleated RBC 0.00 10^3/uL (0-0.01) 10/26/17 03:26 Immature Gran % 0.3 % (0.0-1.1) 10/26/17 03:26 Immature Gran # 0.02 10^3/uL (0.00-0.10) 10/26/17 03:26 Sodium 148 mEq/L (135-145) H 10/26/17 03:26 Potassium 3.8 mEq/L (3.5-5.2) 10/26/17 03:26 Chloride 115 mEq/L (97-110) H 10/26/17 03:26 Carbon Dioxide 22 mEq/l (22-31) 10/26/17 03:26 Anion Gap 11 mEq/L (8-16) 10/26/17 03:26 BUN 28 mg/dL (7-23) H 10/26/17 03:26 Creatinine 1.5 mg/dL (0.7-1.3) H 10/26/17 03:26 Estimated GFR 45 10/26/17 03:26 Glucose 91 mg/dL (70-100) 10/26/17 03:26 Calcium 9.2 mg/dL (8.5-10.4) 10/26/17 03:26 Magnesium 1.9 mg/dL (1.6-2.3) 10/26/17 03:26 Troponin I < 0.012 ng/mL (0.000-0.034) 10/25/17 22:13 TSH 2.960 uIU/mL (0.465-4.680) 10/26/17 03:26 Visualized and Interpreted Chest x-ray results: Yes Visualized and Interpreted EKG results: Yes EKG additional interpertation: NSR in the 70s. First-degree AV block. Q-waves in the inferior leads. No acute ST elevations. QTC 435. Telemetry monitoring overnight showed patient had some episodes of nonsustained bradycardia the to the 30s while he was asleep. Assessment & Plan Assessment: Accelerated hypertension - blood pressure is improved with slight variability. Hydralazine and labetalol available p.r.n. To maintain systolic blood pressures less than 160 and diastolic under 100. Overnight patient did have some episodes of bradycardia down into the 30s while he is asleep. He has not had any episodes this low since he has been awake but has been in the 50s to 60s.. Will continue monitor and holding beta-boo at this time. Will add amlodipine p.o. Patient reports that he had some changes to his medication regimen by accident he decreased the dosing of his metoprolol. He does report that he has been compliant with his Plavix but he is unsure if he has been taking it aspirin on daily basis. Lightheaded - resolved. Patient without any additional symptoms or on orthostasis. Continue to work on blood pressure control. Patient without any focal deficits CT head without any acute changes. NIH score negative. Will mobilize. PT OT consultation. Patient baseline has a unsteady gait Hypernatremia mild - patient does not appear volume depleted. Will add on half- normal saline at this time plan to repeat a BMP. Hyperchloremia in setting of hypernatremia CAD/HLD-continue patient's statin when med rec available. Will check a CK given patient's complaint of muscle cramping. Chronic medical issues CKD stage 3 History CVA History of aneurysm Moderate MR FEN - the half-normal saline with repeat BMP. Electrolyte monitoring and replacement as needed. Cardiac diet has been ordered. Reviewed with patient importance of cardiac and low-salt diet. He reports occasional salt loading. PPX-SCDs. Holding anticoagulation patient is already on Plavix and aspirin. Will continue these. Core-full Disposition-patient is been admitted observation status on the telemetry floor for close cardiac monitoring.
[2017-10-26] MEDS ORDERED: amLODIPine BESYLATE 5 MG TAB PO SCH (09:00)
[2017-10-26 11:45] VITALS: RESP 18
[2017-10-26] MEDS ORDERED: SILDENAFIL CITRATE 20 MG TAB PO PRN (12:32)
[2017-10-26] MEDS ORDERED: METOPROLOL SUCCINATE XR 25 MG TAB PO SCH (12:45)
[2017-10-26] MEDS ORDERED: CLOPIDOGREL BISULFATE 75 MG TAB PO SCH (12:45)
--- NOTE | 2017-10-26 13:07 | HOSPPROG ---
Hospitalist Progress Note Assessment/Plan: 86 yo M w htn here w elevated bp and LH neg eval suspect bb intolerance chnage to norvasc see dc summ Subjective: fairly anxious about bp. case d/w dr mcgarry. no events tele (interp by me) Objective: Vital Signs Temp Pulse Resp BP Pulse Ox 36.2 C 62 18 130/78 H 96 10/26/17 11:45 10/26/17 11:45 10/26/17 11:45 10/26/17 11:45 10/26/17 11:45 Laboratory Results 10/26/17 03:26 10/26/17 09:28 10/25/17 10/26/17 10/27/17 05:59 05:59 05:59 Intake Total 0 112 Output Total 150 Balance 0 -38 - Physical Exam Constitutional: no apparent distress, appears nourished Eyes: PERRL, anicteric sclera Ears, Nose, Mouth, Throat: moist mucous membranes, ears appear normal Cardiovascular: regular rate and rhythym, no murmur, rub, or gallop, No systolic murmur Respiratory: no respiratory distress, no rales or rhonchi Gastrointestinal: normoactive bowel sounds, soft, non-tender abdomen Genitourinary: no bladder fullness, No mcmahan in urethra Skin: warm, normal color Musculoskeletal: full muscle strength, no muscle tenderness Neurologic: AAOx3 ICD10 Worksheet Patient Problems: Problems Problem Status Onset Hypertension Acute Lightheaded Acute Abdominal pain Acute Acute cholecystitis Acute Weakness Acute
--- NOTE | 2017-10-26 14:38 | PDIAF ---
- Diagnosis Diagnosis: hypertension Code Status: Full Code - Medication Management Discharge Medications: Medications to Continue on Transfer Calcium Carbonate [Tums 500MG (*)] 500 mg PO DAILY 03/09/13 [Last Taken 10/25/17 ] Docusate Sodium [Colace 100 MG (*)] 100 mg PO HS 03/11/13 [Last Taken 10/25/17] Multivitamins [Multivitamin (*)] 1 each PO DAILY 03/11/13 [Last Taken 10/25/17] Atorvastatin Calcium [Lipitor 40 mg (*)] 40 mg PO HS 07/30/15 [Last Taken ] Sildenafil Citrate [Revatio 20 MG (*)] 60 - 80 mg PO DAILY PRN 08/17/17 [Last Taken Unknown] Clopidogrel Bisulfate [Plavix (*)] 75 mg PO DAILY #30 tab 08/18/17 [Last Taken 10/25/17] amLODIPine BESYLATE [Norvasc 5 mg (*)] 5 mg PO DAILY #30 tab 10/26/17 [Last Taken Unknown] Discharge Medications: Refer to the Discharge Home Medication list for PRN reason. - Orders Services needed: Physical Therapy Isolation Type: None - Follow Up Care Current Providers and Referrals: Marquis Diamond MD [Primary Care Provider] - As per Instructions
[2017-10-26 15:01] VITALS: BP 130/61; PULSE 74; TEMP 97.7; O2SAT 95
--- NOTE | 2017-10-26 16:01 | PDIAF ---
- Diagnosis Diagnosis: hypertension Code Status: Full Code - Medication Management Discharge Medications: Medications to Continue on Transfer Calcium Carbonate [Tums 500MG (*)] 500 mg PO DAILY 03/09/13 [Last Taken 10/25/17 ] Docusate Sodium [Colace 100 MG (*)] 100 mg PO HS 03/11/13 [Last Taken 10/25/17] Multivitamins [Multivitamin (*)] 1 each PO DAILY 03/11/13 [Last Taken 10/25/17] Atorvastatin Calcium [Lipitor 40 mg (*)] 40 mg PO HS 07/30/15 [Last Taken ] Sildenafil Citrate [Revatio 20 MG (*)] 60 - 80 mg PO DAILY PRN 08/17/17 [Last Taken Unknown] Clopidogrel Bisulfate [Plavix (*)] 75 mg PO DAILY #30 tab 08/18/17 [Last Taken 10/25/17] amLODIPine BESYLATE [Norvasc 5 mg (*)] 5 mg PO DAILY #30 tab 10/26/17 [Last Taken Unknown] Discharge Medications: Refer to the Discharge Home Medication list for PRN reason. - Orders Services needed: Home Care, Registered Nurse, Physical Therapy, Occupational Therapy Home Care Face to Face: I certify that this patient was under my care and that I had the required [id number] encounter meeting the encounter requirements on the discharge day. My findings support the fact that the patient is homebound as defined in Home Care Face to Face Continued: CMS Chapter 7 Medicare Benefits Manual 30.1.1 , The condition of the patient is such that there exists a normal inability to leave home and consequently, leaving home would require a considerable and taxing effort. Isolation Type: None - Follow Up Care Current Providers and Referrals: Marquis Diamond MD [Primary Care Provider] - As per Instructions
[2017-10-26] MEDS ORDERED: DOCUSATE SODIUM 100 MG CAP PO SCH (21:00)
[2017-10-26] MEDS ORDERED: ATORVASTATIN CALCIUM 40 MG TAB PO SCH (21:00)
[2017-10-27] MEDS ORDERED: MULTIVITAMINS 1 EACH TAB PO SCH (09:00)
[2017-10-27] MEDS ORDERED: CALCIUM CARBONATE 500 MG CHEWABLE TAB PO SCH (09:00)
== END 2017-10-26 15:17 | disposition home health service (06) ==
LOC: F2W 10-26 01:04
PROVIDERS: ADMIT Family Medicine; ATTEND Internal Medicine
DX: I12.9 Hypertensive chronic kidney disease with stage 1 through stage 4 chronic kidney disease, or unspecified chronic kidney disease (principal); R26.9 Unspecified abnormalities of gait and mobility; R42 Dizziness and giddiness; R29.700 NIHSS score 0; I44.0 Atrioventricular block, first degree; E78.5 Hyperlipidemia, unspecified; I25.10 Atherosclerotic heart disease of native coronary artery without angina pectoris; N18.3 Chronic kidney disease, stage 3 (moderate); I34.0 Nonrheumatic mitral (valve) insufficiency; I71.4 Abdominal aortic aneurysm, without rupture; E87.0 Hyperosmolality and hypernatremia; Z79.82 Long term (current) use of aspirin; Z85.46 Personal history of malignant neoplasm of prostate; Z86.73 Personal history of transient ischemic attack (TIA), and cerebral infarction without residual deficits; Z82.49 Family history of ischemic heart disease and other diseases of the circulatory system; Z95.1 Presence of aortocoronary bypass graft
CPT/HCPCS: 70450; 93005; 97161; 97165; 97535; G0378; G8978; G8979; G8987; G8988; J0360

== ENCOUNTER 2018-06-30 09:16 | Observation (INO) | payer OTHER ==
[2018-06-30] MEDS ORDERED: NS 1,000 ML IV ONE (09:23)
--- NOTE | 2018-06-30 09:37 | EDPHY ---
H & P Stated Complaint: near syncope Time Seen by Provider: 06/30/18 09:22 HPI/ROS: CHIEF COMPLAINT: Dizziness HISTORY OF PRESENT ILLNESS: 87-year-old male with hypertension and CAD presents after a near syncopal episode. He was sitting in the surgical waiting room while his was having surgery. He began to feel lightheaded and alerted the hospital staff. During their assessment, he was hypotensive, but did not fall or faint. He was able to transfer to a wheelchair unassisted. He now feels back to normal. He slept only 4 hr last night and awoke at 0400 to help his arrive to the hospital in time for surgery. He ate breakfast. His blood pressure medication was recently cut in half because of low blood pressure. No prior history of syncopal episodes. REVIEW OF SYSTEMS: complete 10 point ROS reviewed and is negative except for the noted elements in the HPI Source: Patient - Personal History Current Tetanus Diphtheria and Acellular Pertussis (TDAP): Yes - Medical/Surgical History Hx Asthma: No Hx Chronic Respiratory Disease: No Hx Diabetes: No Hx Cardiac Disease: Yes Hx Renal Disease: Yes Hx Cirrhosis: No Hx Alcoholism: No Hx HIV/AIDS: No Hx Splenectomy or Spleen Trauma: No Other PMH: HTN, cholesterol, CAD, CABG, hx postoperative afib after CABG, appendectomy, CVA, chronic kidney disease stage III with creatinine 1.4 at baseline, mitral valve echodensity, prostate cancer in 2004, cholecystectomy - Social History Smoking Status: Never smoked Alcohol Use: Sober Drug Use: None Additional Social History: PCP: Dr. Diamond - Physical Exam Exam: General Appearance: Alert, pleasant Eyes: Pupils equal and round, no conjunctival pallor or injection ENT, Mouth: Mucous membranes moist Neck: Normal inspection Respiratory: Lungs are clear to auscultation Cardiovascular: Regular rate and rhythm, 2/6 diastolic murmur Gastrointestinal: Abdomen is soft and nontender Neurological: Alert, oriented x3, cranial nerves II through XII intact, motor 5 /5, sensory intact to light touch, gait not assessed Skin: Warm and dry, no rash Extremities: Nontender, no pedal edema Psychiatric: Mood and affect normal Constitutional: Initial Vital Signs Temperature (C) 36.5 C 06/30/18 09:20 Heart Rate 63 06/30/18 09:20 Respiratory Rate 16 06/30/18 09:20 Blood Pressure 113/71 06/30/18 09:20 O2 Sat (%) 95 06/30/18 09:20 O2 Delivery Mode Room Air Allergies/Adverse Reactions: No Known Allergies Allergy (Verified 10/25/17 19:18) Home Medications: Medication Instructions Recorded Calcium Carbonate [Tums 500MG (*)] 500 mg PO DAILY 03/09/13 Docusate Sodium [Colace 100 MG (*)] 100 mg PO HS 03/11/13 Multivitamins [Multivitamin (*)] 1 each PO DAILY 03/11/13 Atorvastatin Calcium [Lipitor 40 40 mg PO HS 07/30/15 mg (*)] Sildenafil Citrate [Revatio 20 MG 60 - 80 mg PO DAILY PRN 08/17/17 (*)] Clopidogrel Bisulfate [Plavix (*)] 75 mg PO DAILY #30 tab 08/18/17 Aspirin [Aspirin 81mg (*)] 81 mg PO DAILY 06/30/18 Tamsulosin HCl [Flomax 0.4 MG (*)] 0.4 mg PO DAILY 06/30/18 amLODIPine BESYLATE [Norvasc 5 mg 2.5 mg PO DAILY 06/30/18 (*)] Medical Decision Making - Diagnostics EKG Interpretation: EKG interpreted by me reveals first-degree AV block, rate 81, no ST or T segment changes. Interpretation: Abnormal EKG ED Course/Re-evaluation: This pt presents after a near syncopal episode. stat EKG reveals no evidence of ischemia or significant dysrhythmia. Initial troponin elevated. d/w pt, no cp or SOB, continues to be asymptomatic. residential monitor: sinus rhythm throughout. Will admit for further cardiac eval. The hospitalist service was consulted for admission. Differential Diagnosis: includes though not limited to ACS, CVA, TIA, hypoglycemia, vasovagal episode, PE - Data Points Medications Given: Discontinued Medications Amlodipine Besylate (Norvasc) 2.5 mg PO DAILY [facility] Stop: 12/28/18 08:59 Last Admin: 07/01/18 09:51 Dose: 2.5 mg Aspirin (Aspirin) 81 mg PO DAILY [facility] Stop: 12/28/18 08:59 Last Admin: 07/01/18 09:52 Dose: 81 mg Atorvastatin Calcium (Lipitor) 40 mg PO HS [facility] Stop: 12/27/18 20:59 Last Admin: 06/30/18 20:57 Dose: 40 mg Calcium Carbonate (Tums) 500 mg PO DAILY [facility] Stop: 12/28/18 08:59 Last Admin: 07/01/18 09:53 Dose: 500 mg Clopidogrel Bisulfate (Plavix) 75 mg PO DAILY [facility] Stop: 12/28/18 08:59 Last Admin: 07/01/18 09:52 Dose: 75 mg Docusate Sodium (Colace) 100 mg PO HS [facility] Stop: 12/27/18 20:59 Last Admin: 06/30/18 20:57 Dose: 100 mg Sodium Chloride (Ns) 1,000 mls @ 0 mls/hr IV EDNOW ONE; Wide Open PRN Reason: Protocol Stop: 06/30/18 09:24 Last Admin: 06/30/18 09:42 Dose: 1,000 mls Sodium Chloride (Ns) 1,000 mls @ 75 mls/hr IV CONT [facility] Stop: 07/01/18 04:19 Last Admin: 06/30/18 15:34 Dose: 1,000 mls Tamsulosin HCl (Flomax) 0.4 mg PO DAILY [facility] Stop: 12/28/18 08:59 Last Admin: 07/01/18 09:52 Dose: 0.4 mg Point of Care Test Results: Chemistry 06/30/18 09:38 POC Troponin I 0.13 ng/mL H ng/mL (0.00-0.08) Departure - Departure Disposition: Home, Routine, Self-Care Clinical Impression: Near syncope Condition: Good
[2018-06-30 11:26] LABS: PLATELET COUNT 227 10^3/uL (150-400)
--- NOTE | 2018-06-30 12:47 | CPEKG ---
Test Reason : OPEN Blood Pressure : / mmHG Vent. Rate : 081 BPM Atrial Rate : 080 BPM P-R Int : 222 ms QRS Dur : 092 ms QT Int : 392 ms P-R-T Axes : 046 045 090 degrees QTc Int : 455 ms Sinus rhythm Prolonged ND interval Confirmed by Arcelia Henriquez ([id number]) on 06/30/2018 12:47:39 PM Referred By: Confirmed By:Arcelia Henriquez
[2018-06-30] MEDS ORDERED: ONDANSETRON 4 MG/2 ML VIAL IVP PRN (13:24)
[2018-06-30] MEDS ORDERED: ACETAMINOPHEN 325 MG TAB PO PRN (13:24)
[2018-06-30] MEDS ORDERED: ONDANSETRON DISINTEGRATING 4 MG TAB PO PRN (13:24)
--- NOTE | 2018-06-30 14:49 | PDGENHP ---
History and Physical - Chief Complaint pre-syncope - History of Present Illness 87 yo male with h/o CAD and prior CABG, hypertension, hyperlipidemia, and prior CVA presented to ED after a STAT team call while he was in the surgical waiting room at [facility]. His is having surgery for melanoma. He notes not sleeping much last night and getting up at 4 am to bring his in for surgery. While he was waiting, he began to feel lightheaded and thought he might faint. He notified someone and a STAT team was called. I discussed the case with the ICU devulcanizer charger, who noted his BP was 100/50. He thought that was low for him. He thought he may have taken too much Amlodipine and has recently had his dose decreased due to low BP. He denies CP, SOB or palpitations. He did not lose consciousness. In the ED, he received 1 L NS and is admitted for further management. History Information - Allergies/Home Medication List Allergies/Adverse Reactions: No Known Allergies Allergy (Verified 10/25/17 19:18) Home Medications: Calcium Carbonate [Tums 500MG (*)] 500 mg PO DAILY 03/09/13 [Last Taken 06/30/18 ] Docusate Sodium [Colace 100 MG (*)] 100 mg PO HS 03/11/13 [Last Taken 06/29/18] Multivitamins [Multivitamin (*)] 1 each PO DAILY 03/11/13 [Last Taken 06/30/18] Atorvastatin Calcium [Lipitor 40 mg (*)] 40 mg PO HS 07/30/15 [Last Taken ] Sildenafil Citrate [Revatio 20 MG (*)] 60 - 80 mg PO DAILY PRN 08/17/17 [Last Taken Unknown] Aspirin [Aspirin 81mg (*)] 81 mg PO DAILY 06/30/18 [Last Taken 06/30/18] Tamsulosin HCl [Flomax 0.4 MG (*)] 0.4 mg PO DAILY 06/30/18 [Last Taken 06/30/18 ] amLODIPine BESYLATE [Norvasc 5 mg (*)] 2.5 mg PO DAILY 06/30/18 [Last Taken 09/16] I have personally reviewed and updated: family history, medical history, social history, surgical history - Past Medical History coronary artery disease, hypertension, hyperlipidemia Additional medical history: HTN, HLD, CAD s/p CABG, 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 He history of postop AFib after CABG, CKD stage 3 with baseline creatinine 1.4, mild MVR, aortic aneurysm of 3.7 cm, prostate cancer status post prostatectomy 2004 - Surgical History Additional surgical history: CABG, appy, mar, cataracts, prostatectomy - Family History Additional family history: Mother with history CAD, CVA in her 50s - Social History Smoking Status: Never smoked Alcohol Use: Sober Additional social history: Patient is lives with his . Remains quite active exercising several times weekly. Cor status full Review of Systems Review of Systems: ROS: 10pt was reviewed & negative except for what was stated in HPI & below Physical Exam Physical Exam: Temp Pulse Resp BP Pulse Ox 36.4 C 64 14 152/90 H 96 06/30/18 12:11 06/30/18 12:11 06/30/18 12:11 06/30/18 12:11 06/30/18 12:11 Constitutional: no apparent distress Eyes: PERRL Ears, Nose, Mouth, Throat: moist mucous membranes Cardiovascular: regular rate and rhythym Respiratory: no respiratory distress, clear to auscultation Gastrointestinal: normoactive bowel sounds, soft, non-tender abdomen Skin: warm Musculoskeletal: full muscle strength Neurologic: AAOx3 Psychiatric: interacting appropriately Lab Data & Imaging Review 06/30/18 11:15 06/30/18 11:15 WBC 7.82 10^3/uL (3.80-9.50) 06/30/18 11:15 RBC 4.60 10^6/uL (4.40-6.38) 06/30/18 11:15 Hgb 14.5 g/dL (13.7-17.5) 06/30/18 11:15 Hct 43.3 % (40.0-51.0) 06/30/18 11:15 MCV 94.1 fL (81.5-99.8) 06/30/18 11:15 MCH 31.5 pg (27.9-34.1) 06/30/18 11:15 MCHC 33.5 g/dL (32.4-36.7) 06/30/18 11:15 RDW 12.7 % (11.5-15.2) 06/30/18 11:15 Plt Count 227 10^3/uL (150-400) 06/30/18 11:15 MPV 10.4 fL (8.7-11.7) 06/30/18 11:15 Neut % (Auto) 75.9 % (39.3-74.2) H 06/30/18 11:15 Lymph % (Auto) 12.0 % (15.0-45.0) L 06/30/18 11:15 Mcclain % (Auto) 10.1 % (4.5-13.0) 06/30/18 11:15 Eos % (Auto) 1.3 % (0.6-7.6) 06/30/18 11:15 Baso % (Auto) 0.3 % (0.3-1.7) 06/30/18 11:15 Nucleat RBC Rel Count 0.0 % (0.0-0.2) 06/30/18 11:15 Absolute Neuts (auto) 5.94 10^3/uL (1.70-6.50) 06/30/18 11:15 Absolute Lymphs (auto) 0.94 10^3/uL (1.00-3.00) L 06/30/18 11:15 Absolute Monos (auto) 0.79 10^3/uL (0.30-0.80) 06/30/18 11:15 Absolute Eos (auto) 0.10 10^3/uL (0.03-0.40) 06/30/18 11:15 Absolute Basos (auto) 0.02 10^3/uL (0.02-0.10) 06/30/18 11:15 Absolute Nucleated RBC 0.00 10^3/uL (0-0.01) 06/30/18 11:15 Immature Gran % 0.4 % (0.0-1.1) 06/30/18 11:15 Immature Gran # 0.03 10^3/uL (0.00-0.10) 06/30/18 11:15 Sodium 144 mEq/L (135-145) 06/30/18 11:15 Potassium 4.5 mEq/L (3.3-5.0) 06/30/18 11:15 Chloride 109 mEq/L (97-110) 06/30/18 11:15 Carbon Dioxide 27 mEq/l (22-31) 06/30/18 11:15 Anion Gap 8 mEq/L (6-14) 06/30/18 11:15 BUN 25 mg/dL (7-23) H 06/30/18 11:15 Creatinine 1.6 mg/dL (0.7-1.3) H 06/30/18 11:15 Estimated GFR 41 06/30/18 11:15 Glucose 92 mg/dL (70-100) 06/30/18 11:15 Calcium 9.1 mg/dL (8.5-10.4) 06/30/18 11:15 Total Bilirubin 0.6 mg/dL (0.1-1.4) 06/30/18 11:15 AST 18 IU/L (17-59) 06/30/18 11:15 ALT 25 IU/L (21-72) 06/30/18 11:15 Alkaline Phosphatase 73 IU/L (38-126) 06/30/18 11:15 POC Troponin I 0.13 ng/mL (0.00-0.08) H 06/30/18 09:38 Troponin I < 0.012 ng/mL (0.000-0.034) 06/30/18 13:35 NT-Pro-B Natriuret Pep 79 pg/mL (0-450) 06/30/18 11:15 Total Protein 6.7 g/dL (6.3-8.2) 06/30/18 11:15 Albumin 4.0 g/dL (3.5-5.0) 06/30/18 11:15 Visualized and Interpreted EKG results: Yes EKG Interpretation: Positive for: normal sinsus rhythm, NS ST wave abnormalities Assessment & Plan Assessment: Near syncope (Acute) - suspect volume depletion in setting of exhaustion. No associated CP, SOB. -check orthostatics -gentle hydration overnight with NS -hold anti-hypertensives for now -monitor on telemetry -check echo and d dimer (CTA if latter positive) -trend trop CAD with h/o CABG - stable, CP free -trending trop as above -cont home meds: ASA, Plavix, statin 1st degree heart block - CO interval 222 Hypertension - holding norvasc for now CKD - baseline Cr 1.4 Full code Dispo - obs
[2018-06-30] MEDS ORDERED: NS 1,000 ML IV SCH (15:00)
--- NOTE | 2018-06-30 15:59 | ECHO ---
[email or web address] [address] [address] Main: [phone] Fax: Transthoracic Echocardiogram Name: WILMA VIDALES MR#: [id number] Study Date: 06/30/2018 Study Time: 02:55 PM Date of : 1930 Age: 87 year(s) Height: 154.9 cm (61 in.) Weight: 83.92 kg (185 lb.) BSA: 1.83 m2 Gender: Male Examination: Echo Indication: Cardiac: syncope, hx CAD with prior cabg Image Quality: Adequate Contrast: Requested by: Merly Donohue BP: 152 mmHg/90 mmHg Heart Rate: Rhythm: Indication: Cardiac: syncope, hx CAD with prior cabg Procedure Staff Staff Midwife/Apprenticeship Director: Kimberly Fonseca [facility] Reading Physician: Cory Tsai MD Requesting Provider: Conclusions: Asymmetrical septal LV hypertrophy. Normal global systolic LV function. EF is 65 %. Moderate mitral valve regurgitation is present. Cannot rule out bicuspid aortic valve. Trivial-mild aortic valve stenosis. Mild tricuspid regurgitation is present. Right ventricular systolic pressure measures 39mmHg. Measurements: Chambers Valvular Assessment AV/MV Valvular Assessment TV/PV Normal Normal Normal Name Value Range Name Value Range Name Value Range Ao Cait (2D): 3.3 cm (1.4 cm-2.6 AV Vmax: 2.03 m/s (1 m/s-1.7 TR Vmax: 2.93 mm/s ( - ) cm) m/s) TR PGmax: 34 mmHg ( - ) IVSd (2D): 1.6 cm (0.6 cm-1.1 AV maxP mmHg ( - ) syst. PAP: 39 mmHg ( - ) cm) AV meanP mmHg ( - ) PV Vmax: 0.87 m/s (0.6 m/s-0.9 LVDd (2D): 4.0 cm (4.2 cm-5.9 ALMA (VTI): 1.9 cm ( - ) m/s) cm) MV E Vmax: 1.13 m/s ( - ) PV PGmax: 3 mmHg ( - ) LVDs (2D): 2.9 cm (2.1 cm-4 MV PHT: 0.032 s ( - ) cm) MVA (PHT): 6.9 s ( - ) LVPWd (2D): 1.2 cm (0.6 cm-1 cm) LVOTd 1.9 cm 1.9 cm mm LVEF (BP): 65 % (>=55 %) RVDd(2D): 3.2 cm (1.9 cm-3.8 cmmm) Continued Measurements: Chambers Valvular Assessment AV/MV Valvular Assessment TV/PV Patient: WILMA VIDALES Study Date: 06/30/2018 Page 1 of 2 02:55 PM Name Value Name Value Name Value LADs: 3.7 cm MV DecTime: 113 m/s CVP (est.): 5 mmHg LADs Lon.3 cm MR ERO: 0.180 cm2 LA Area: 19.3 cm2 MR PISA radius: 7 mm LA Volume: 67 ml MR Reg. Volume: 29 ml LA Volume Index: 36.6 ml/m2 RA Area: 18.1 cm2 Additional Vessels Name Value Ao Ascendin.3 cm Findings: Left Ventricle: Normal size left ventricle. Asymmetrical septal LV hypertrophy. Normal global systolic LV function. EF is 65 %. No regional wall motion abnormality. Unable to assess diastolic dysfunction. Some elevated LVOT gradients are noted. Right Ventricle: Normal size right ventricle. Normal RV function. Left Atrium: The left atrium is mildly dilated. Right Atrium: The right atrium is normal in size. Mitral Valve: The mitral valve is normal in appearance and function. Moderate mitral valve regurgitation is present. No mitral stenosis is present. Aortic Valve: Aortic sclerosis is present. Cannot rule out bicuspid aortic valve. There is no significant aortic valve regurgitation. Trivial-mild aortic valve stenosis. Tricuspid Valve: The tricuspid valve is normal in appearance and function. Mild tricuspid regurgitation is present. The pulmonary artery pressure is normal. Right ventricular systolic pressure measures 39mmHg. Pulmonic Valve: The pulmonic valve is normal in appearance and function. Mild pulmonic valve regurgitation is noted. Aorta: The aorta is normal. Normal size aortic root measuring 3.3 cm. Normal size ascending aorta measuring 3.3 cm. IVC: Technically difficult subcostal imaging. Pericardium: No pericardial effusion. No pleural effusion. (No Signature Object) Patient: WILMA VIDALES Study Date: 06/30/2018 Page 2 of 2 02:55 PM [id number]
[2018-06-30] MEDS ORDERED: DOCUSATE SODIUM 100 MG CAP PO SCH (21:00)
[2018-06-30] MEDS ORDERED: ATORVASTATIN CALCIUM 40 MG TAB PO SCH (21:00)
[2018-07-01] MEDS ORDERED: ASPIRIN 81 MG CHEWABLE TAB PO SCH (09:00)
[2018-07-01] MEDS ORDERED: CALCIUM CARBONATE 500 MG CHEWABLE TAB PO SCH (09:00)
[2018-07-01] MEDS ORDERED: CLOPIDOGREL BISULFATE 75 MG TAB PO SCH (09:00)
[2018-07-01] MEDS ORDERED: amLODIPine BESYLATE 5 MG TAB PO SCH (09:00)
[2018-07-01] MEDS ORDERED: TAMSULOSIN HCL 0.4 MG CAP PO SCH (09:00)
[2018-07-01 09:54] VITALS: BP 124/68
--- NOTE | 2018-07-01 15:19 | CPR ---
DATE OF PROCEDURE: 07/01/2018 PROCEDURE: Treadmill stress test. REASON FOR TEST: Syncope. RECOVERY: Resting EKG shows a sinus rhythm with a 1st-degree AV block, occasional PAC noted. No ischemic changes. Resting blood pressure 130/80, resting heart rate 71. STRESS PORTION: He was exercised according to the [facility] protocol. Maximal MET level reached 4.6, maximal heart rate 103, max blood pressure 166/62. With exercise, he did note some mild lightheadedness. He had no chest pain or shortness of breath. Due to fatigue, the stage was not advanced and he remained walking at 1.7 miles an hour with a 10% grade. His 85% maximal heart rate was estimated at 114. He did reach 103 before becoming fatigued and needing to stop. He did have PVCs and PACs during the treadmill portion. There were no ischemic changes noted. He did spontaneously recover with appropriate blood pressure and pulse response. Resting heart rate 64, resting blood pressure 138/62. The lightheadedness did dissipate once he rested post testing. There was no indication of chronotropic abnormal response. At this time, he is stable to return to his room. /[id number]/MODL MTDD
--- NOTE | 2018-07-01 16:15 | GDS ---
DISCHARGE DIAGNOSES: 1. Near syncope secondary to volume depletion and associated hypotension. 2. Bradycardia. 3. First-degree heart block. 4. Coronary artery disease with history of coronary artery bypass graft. 5. Moderate mitral regurgitation. 6. Hypertension. 7. Chronic kidney disease with a baseline creatinine of 1.4. CONSULTANTS: None. IMAGING STUDIES: Echocardiogram, June 30, 2018, showed normal left ventricular function with an e jection fraction of 65%, moderate mitral regurgitation. Trivial to mild aortic valve stenosis and mi ld tricuspid regurgitation with a right ventricular systolic pressure of 39. HISTORY: For details, please see history and physical dated June 30, 2018. In brief, the patient is an 87-year-old male with a history of hypertension, hyperlipidemia, and coronary artery disease w ith prior CABG, who was admitted to the hospital after a stat team call, during which time he suffere d dizziness and presyncope symptoms. He did not actually lose consciousness. He was brought to the emergency department and then admitted to the hospital for further evaluation. HOSPITAL COURSE: The patient was admitted to the cardiac telemetry unit. It is suspected his presyn copal symptoms were related to volume depletion and hypotension with antihypertensives on board. He recently had his amlodipine dose decreased due to low blood pressures. He was monitored on telemetry , and although he did have some heart rates drift down into the 40s, he had no significant pauses and no symptoms associated with his mild bradycardia. He is not on any AV candida blockers. He received gentle IV hydration. His orthostatics were negative. Given his mild bradycardia, he underwent an ex ercise treadmill stress test to ensure he has an appropriate heart rate response to exercise, which h nixon did. Furthermore, there was no evidence to suggest cardiac ischemia. His troponins were negative. On the day of discharge, his vital signs were stable, with a blood pressure of 124/68, after his lowe red dose of amlodipine. His heart rate has been in the 70s. He is 96% on room air. No significant abnormalities on physical exam. DISPOSITION: Patient is discharged home in stable condition. FOLLOWUP: Dr. Marquis Laureano, primary care. DISCHARGE MEDICATIONS: Please see getbetter! for completed outpatient medication list. He will contin ue all outpatient medications as previously prescribed. /[id number]/MODL
== END 2018-07-01 14:40 | disposition home or self-care (01) ==
LOC: F2W 11:53
PROVIDERS: ADMIT Hospitalist; ATTEND Hospitalist
DX: R55 Syncope and collapse (principal); E86.9 Volume depletion, unspecified; I95.9 Hypotension, unspecified; R00.1 Bradycardia, unspecified; R79.89 Other specified abnormal findings of blood chemistry; I25.10 Atherosclerotic heart disease of native coronary artery without angina pectoris; I44.0 Atrioventricular block, first degree; I34.0 Nonrheumatic mitral (valve) insufficiency; I12.9 Hypertensive chronic kidney disease with stage 1 through stage 4 chronic kidney disease, or unspecified chronic kidney disease; N18.3 Chronic kidney disease, stage 3 (moderate); E78.5 Hyperlipidemia, unspecified; I69.998 Other sequelae following unspecified cerebrovascular disease; I71.2 Thoracic aortic aneurysm, without rupture; Z85.46 Personal history of malignant neoplasm of prostate; Z82.49 Family history of ischemic heart disease and other diseases of the circulatory system; Z95.1 Presence of aortocoronary bypass graft
CPT/HCPCS: 93005; 93017; 93306; 96360; 97116; 97161; 97165; 99285; G0378; G8978; G8979; G8987; G8988; 84484-PO

== ENCOUNTER 2018-09-21 16:09 | Observation (INO) | payer OTHER ==
[2018-09-21] MEDS ORDERED: NS 1,000 ML IV ONE (16:37)
--- NOTE | 2018-09-21 16:47 | EDPHY ---
H & P Stated Complaint: Lightheadedness Time Seen by Provider: 09/21/18 16:28 HPI/ROS: CHIEF COMPLAINT: Lightheadedness HISTORY OF PRESENT ILLNESS: The patient is an 87-year-old man who was here with his when he began to feel lightheaded. He states that he felt lightheaded earlier this morning as well. He states that this tends to be somewhat chronic for him. He was admitted in June with lightheadedness and at that time was found to be volume depleted and had recently started amlodipine. The patient's nurse that Norvasc is also new medication over the last year. He states that with the combination of these 2 medications he often feels lightheaded but usually does lies down for few minutes. Today in his 's room however nursing staff obtained a blood pressure that was 84/49. They then registered him and took him to his own room. He denies chest pain, shortness of breath the palpations. He does have a history of 4 vessel bypass in 2007 and is followed by Dr. Kelley. He states that he has not had much to eat or drink today. No fever. No headache. No vision changes. No hearing changes. Severity: Moderate Modifying factors: Worsened by standing REVIEW OF SYSTEMS: Constitutional: denies: chills, fever, recent illness, recent injury EENTM: denies: blurred vision, double vision, nose congestion Respiratory: denies: cough, shortness of breath Cardiac: denies: chest pain, irregular heart rate, lightheadedness, palpitations Gastrointestinal/Abdominal: denies: abdominal pain, diarrhea, nausea, vomiting, blood streaked stools Genitourinary: denies: dysuria, frequency, hematuria, pain Musculoskeletal: denies: joint pain, muscle pain Skin: denies: lesions, rash, jaundice, bruising Neurological: denies: headache, numbness, paresthesia, tingling, dizziness, weakness Hematologic/Lymphatic: denies: blood clots, easy bleeding, easy bruising Immunologic/allergic: denies: HIV/AIDS, transplant 10 systems reviewed and negative except as noted EXAM: GENERAL: Well-appearing, well-nourished and in no acute distress. Here in the room the patient's blood pressure is 113/70. It does however dropped occasionally. HEAD: Atraumatic, normocephalic. EYES: Pupils equal round and reactive to light, extraocular movements intact, sclera anicteric, conjunctiva are normal. ENT: TMs normal, nares patent, oropharynx clear without exudates. Moist mucous membranes. NECK: Normal range of motion, supple without lymphadenopathy or JVD. LUNGS: Breath sounds clear to auscultation bilaterally and equal. No wheezes rales or rhonchi. HEART: Regular rate and rhythm without murmurs, rubs or gallops. ABDOMEN: Soft, nontender, normoactive bowel sounds. No guarding, no rebound. No masses appreciated. BACK: No CVA tenderness, no spinal tenderness, step-offs or deformities EXTREMITIES: Normal range of motion, no pitting or edema. No clubbing or cyanosis. NEUROLOGICAL: Cranial nerves II through XII grossly intact. Normal speech, normal gait. 5/5 strength, normal movement in all extremities, normal sensation , normal reflexes PSYCH: Normal mood, normal affect. SKIN: Warm, dry, normal turgor, no visible rashes or lesions. Source: Patient Exam Limitations: No limitations - Personal History Current Tetanus Diphtheria and Acellular Pertussis (TDAP): Unsure - Medical/Surgical History Hx Asthma: No Hx Chronic Respiratory Disease: No Hx Diabetes: No Hx Cardiac Disease: Yes Hx Renal Disease: Yes Hx Cirrhosis: No Hx Alcoholism: No Hx HIV/AIDS: No Hx Splenectomy or Spleen Trauma: No Other PMH: HTN, cholesterol, CAD, CABG, appendectomy, CVA, chronic kidney disease stage III with creatinine 1.4 at baseline, mitral valve echodensity, prostate cancer in 2004, cholecystectomy - Family History Significant Family History: No pertinent family hx - Social History Smoking Status: Never smoked Alcohol Use: None Constitutional: Initial Vital Signs Blood Pressure 86/49 L 09/21/18 16:10 O2 Delivery Mode Room Air Allergies/Adverse Reactions: No Known Allergies Allergy (Verified 10/25/17 19:18) Home Medications: Medication Instructions Recorded Calcium Carbonate [Tums 500MG (*)] 500 mg PO DAILY 03/09/13 Docusate Sodium [Colace 100 MG (*)] 100 mg PO HS 03/11/13 Multivitamins [Multivitamin (*)] 1 each PO DAILY 03/11/13 Sildenafil Citrate [Revatio 20 MG 60 - 80 mg PO DAILY PRN 08/17/17 (*)] Clopidogrel Bisulfate [Plavix (*)] 75 mg PO DAILY #30 tab 08/18/17 Aspirin [Aspirin 81mg (*)] 81 mg PO DAILY 06/30/18 Atorvastatin Calcium [Lipitor 40 40 mg PO HS 09/21/18 mg (*)] Herbals/Supplements -Info Only 1 ea PO DAILY 09/21/18 amLODIPine BESYLATE [Norvasc 5 mg 5 mg PO DAILY 09/21/18 (*)] clonIDINE [Catapres (*)] 0.1 mg PO DAILY PRN 09/21/18 Medical Decision Making - Diagnostics EKG Interpretation: An EKG obtained and was read and documented in trace view. Please see trace view for full reading and report. Sinus rhythm, PAC, otherwise unchanged from previous ED Course/Re-evaluation: 5:40 p.m. the patient's blood pressure is very labile. It is currently 156/87. He is creatinine is slightly elevated compared to baseline. I suspect that he is dehydrated. He stated as much. Also he may need some adjustment of his blood pressure medications. I discussed the case with Dr. Bailey who will admit. His troponin and EKG are reassuring. He does not have chest pain or shortness of breath. Differential Diagnosis: Partial list of the Differential diagnosis considered include but were not limited to; dehydration, hypotension, presyncope, arrhythmia and although unlikely based on the history and physical exam, I also considered acute coronary disease, PE, dissection. - Data Points Laboratory Results: Laboratory Results 09/21/18 16:45 09/21/18 16:45 09/21/18 09/21/18 09/21/18 16:49 16:45 16:45 WBC 8.62 10^3/uL 10^3/uL (3.80-9.50) RBC 4.99 10^6/uL 10^6/uL (4.40-6.38) Hgb 15.6 g/dL g/dL (13.7-17.5) Hct 46.5 % % (40.0-51.0) MCV 93.2 fL fL (81.5-99.8) MCH 31.3 pg pg (27.9-34.1) MCHC 33.5 g/dL g/dL (32.4-36.7) RDW 12.8 % % (11.5-15.2) Plt Count 264 10^3/uL 10^3/uL (150-400) MPV 10.4 fL fL (8.7-11.7) Neut % (Auto) 72.7 % % (39.3-74.2) Lymph % (Auto) 9.5 % L % (15.0-45.0) Gillespie % (Auto) 16.5 % H % (4.5-13.0) Eos % (Auto) 0.8 % % (0.6-7.6) Baso % (Auto) 0.2 % L % (0.3-1.7) Nucleat RBC Rel Count 0.0 % % (0.0-0.2) Absolute Neuts (auto) 6.26 10^3/uL 10^3/uL (1.70-6.50) Absolute Lymphs (auto) 0.82 10^3/uL L 10^3/uL (1.00-3.00) Absolute Monos (auto) 1.42 10^3/uL H 10^3/uL (0.30-0.80) Absolute Eos (auto) 0.07 10^3/uL 10^3/uL (0.03-0.40) Absolute Basos (auto) 0.02 10^3/uL 10^3/uL (0.02-0.10) Absolute Nucleated RBC 0.00 10^3/uL 10^3/uL (0-0.01) Immature Gran % 0.3 % % (0.0-1.1) Immature Gran # 0.03 10^3/uL 10^3/uL (0.00-0.10) Sodium 141 mEq/L mEq/L (135-145) Potassium 4.2 mEq/L mEq/L (3.5-5.2) Chloride 110 mEq/L mEq/L (97-110) Carbon Dioxide 21 mEq/l L mEq/l (22-31) Anion Gap 10 mEq/L mEq/L (6-14) BUN 31 mg/dL H mg/dL (7-23) Creatinine 1.9 mg/dL H mg/dL (0.7-1.3) Estimated GFR 34 Glucose 99 mg/dL mg/dL (70-100) Calcium 9.5 mg/dL mg/dL (8.5-10.4) POC Troponin I 0.00 ng/mL ng/mL (0.00-0.08) Medications Given: Discontinued Medications Sodium Chloride (Ns) 1,000 mls @ 0 mls/hr IV EDNOW ONE; Wide Open PRN Reason: Protocol Stop: 09/21/18 16:38 Last Admin: 09/21/18 16:49 Dose: 1,000 mls Point of Care Test Results: Chemistry 09/21/18 16:49 POC Troponin I 0.00 ng/mL ng/mL (0.00-0.08) Departure - Departure Disposition: [facility] Inpatient Acute Clinical Impression: Near syncope, Dehydration Hypotension Qualifiers: Hypotension type: unspecified hypotension type Qualified Code(s): I95.9 - Hypotension, unspecified Condition: Fair
--- NOTE | 2018-09-21 16:58 | CPEKG ---
Test Reason : OPEN Blood Pressure : / mmHG Vent. Rate : 083 BPM Atrial Rate : 083 BPM P-R Int : 208 ms QRS Dur : 093 ms QT Int : 391 ms P-R-T Axes : 023 026 109 degrees QTc Int : 460 ms Sinus rhythm Atrial premature complex Probable left atrial enlargement Confirmed by Katt Wagoner ([id number]) on 09/21/2018 4:57:27 PM Referred By: KATT WAGONER Confirmed By:Katt Wagoner
[2018-09-21 17:20] LABS: PLATELET COUNT 264 10^3/uL (150-400)
[2018-09-21] MEDS ORDERED: ONDANSETRON 4 MG/2 ML VIAL IVP PRN (17:44)
[2018-09-21] MEDS ORDERED: ACETAMINOPHEN 325 MG TAB PO PRN (17:44)
[2018-09-21] MEDS ORDERED: ONDANSETRON DISINTEGRATING 4 MG TAB PO PRN (17:44)
[2018-09-21] MEDS ORDERED: NS 1,000 ML IV SCH (17:45)
--- NOTE | 2018-09-21 19:08 | PDGENHP ---
<Kristy Harris - Last Filed: 09/21/18 19:27> History and Physical - Chief Complaint Presyncope - History of Present Illness 87 y/o male with history of CAD s/p CABG x 4 (2007), HTN, HLD, and prior CVA presented to the emergency room today d/t lightheadedness. He was here previously in June 2018 with similar symptoms however this was d /t low blood pressure while this admission is d/t labile blood pressure. He apparently was here with his and became "woozy." His blood pressure was taken and it was 84/49. He was registered and taken into a ED room. He denies chest pains, SOB, nausea, vomiting, palpitations, diaphoresis. He reports eating at a different [place] restaurant on Wednesday and "something just didn't sit right," and reports 3 bouts of non-bloody diarrhea today. He thinks it has resolved as he has not had another episode of diarrhea. He is being admitted for further observation and monitoring. Past Medical/Surgical History 1. CAD s/p CABG x 4 (2007) 2. Residual left homonymous hemianopsia s/p CABG, TIA (2012), Chronic left peripheral vision deficit. No longer drives. 3. HLD 4. HTN 5. Malignant prostate neoplasm (2004), seed implant (2008) 6. Chronic renal failure III 7. Ascending aorta dilatation 8. Valvular heart disease 9. AAA 10. Appendectomy 11. Cholecystectomy 12. Cataract surgery 13. Knee revision Social 1. Lives with in assisted living 2. Denies tobacco or illicit drug use. Denies alcohol use. History Information - Allergies/Home Medication List Allergies/Adverse Reactions: No Known Allergies Allergy (Verified 10/25/17 19:18) Home Medications: Calcium Carbonate [Tums 500MG (*)] 500 mg PO DAILY 03/09/13 [Last Taken 09/21/18 ] Docusate Sodium [Colace 100 MG (*)] 100 mg PO HS 03/11/13 [Last Taken 09/20/18] Multivitamins [Multivitamin (*)] 1 each PO DAILY 03/11/13 [Last Taken 09/21/18] Sildenafil Citrate [Revatio 20 MG (*)] 60 - 80 mg PO DAILY PRN 08/17/17 [Last Taken Unknown] Aspirin [Aspirin 81mg (*)] 81 mg PO DAILY 06/30/18 [Last Taken 09/21/18] Atorvastatin Calcium [Lipitor 40 mg (*)] 40 mg PO HS 09/21/18 [Last Taken ] Herbals/Supplements -Info Only 1 ea PO DAILY 09/21/18 [Last Taken 09/21/18] amLODIPine BESYLATE [Norvasc 5 mg (*)] 5 mg PO DAILY 09/21/18 [Last Taken ] clonIDINE [Catapres (*)] 0.1 mg PO DAILY PRN 09/21/18 [Last Taken Unknown] I have personally reviewed and updated: family history, medical history, social history, surgical history Past Medical History: See HPI list - Past Medical History coronary artery disease, hypertension, hyperlipidemia Additional medical history: HTN, HLD, CAD s/p CABG, 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 He history of postop AFib after CABG, CKD stage 3 with baseline creatinine 1.4, mild MVR, aortic aneurysm of 3.7 cm, prostate cancer status post prostatectomy 2004 - Surgical History Additional surgical history: CABG, appy, mar, cataracts, prostatectomy - Family History Additional family history: Mother with history CAD, CVA in her 50s - Social History Smoking Status: Never smoked Alcohol Use: None Additional social history: Patient is lives with his . Remains quite active exercising several times weekly. Cor status full Review of Systems Review of Systems: ROS: 10pt was reviewed & negative except for what was stated in HPI & below Constitutional: Reports: no symptoms EENMT: Reports: no symptoms Cardiac: Reports: lightheadedness Respiratory: Reports: no symptoms Gastrointestinal: Reports: diarrhea Genitourinary: Reports: no symptoms Muscolosketal: Reports: no symptoms Skin: Reports: no symptoms Neurological: Reports: no symptoms Hematologic/Lymphatic: Reports: no symptoms Immunologic/Allergy: Reports: no symptoms Physical Exam Physical Exam: Lab data and imaging were reviewed BUN/Creatinine: 31/1.9 EKG: SR, PAC Temp Pulse Resp BP Pulse Ox 36.3 C 86 16 156/87 H 94 09/21/18 16:29 09/21/18 17:33 09/21/18 17:33 09/21/18 17:33 09/21/18 17:33 Constitutional: no apparent distress, appears nourished, not in pain Eyes: PERRL, anicteric sclera, EOMI Ears, Nose, Mouth, Throat: moist mucous membranes, hearing normal, ears appear normal, no oral mucosal ulcers Cardiovascular: regular rate and rhythym, systolic murmur, No edema Peripheral Pulses: 2+: dorsalis-pedis (R) (Radial 2+), dorsalis-pedis (L) ( Radial 2+) Respiratory: no respiratory distress, no rales or rhonchi, clear to auscultation Gastrointestinal: normoactive bowel sounds, soft, non-tender abdomen, no palpable masses Genitourinary: no bladder fullness, no bladder tenderness Skin: warm, normal color, no rashes or abrasions, no fluctuance, no induration, No mottled Musculoskeletal: full muscle strength, no muscle tenderness, normal joint ROM, no joint effusions Neurologic: AAOx3, sensation intact bilaterally, CN II-XII Intact Psychiatric: interacting appropriately, not anxious, not encephalopathic, thought process linear Lymph, Heme, Immunologic: no cervical LAD, no supraclavicular LAD Lab Data & Imaging Review 09/21/18 16:45 09/21/18 16:45 WBC 8.62 10^3/uL (3.80-9.50) 09/21/18 16:45 RBC 4.99 10^6/uL (4.40-6.38) 09/21/18 16:45 Hgb 15.6 g/dL (13.7-17.5) 09/21/18 16:45 Hct 46.5 % (40.0-51.0) 09/21/18 16:45 MCV 93.2 fL (81.5-99.8) 09/21/18 16:45 MCH 31.3 pg (27.9-34.1) 09/21/18 16:45 MCHC 33.5 g/dL (32.4-36.7) 09/21/18 16:45 RDW 12.8 % (11.5-15.2) 09/21/18 16:45 Plt Count 264 10^3/uL (150-400) 09/21/18 16:45 MPV 10.4 fL (8.7-11.7) 09/21/18 16:45 Neut % (Auto) 72.7 % (39.3-74.2) 09/21/18 16:45 Lymph % (Auto) 9.5 % (15.0-45.0) L 09/21/18 16:45 [place] % (Auto) 16.5 % (4.5-13.0) H 09/21/18 16:45 Eos % (Auto) 0.8 % (0.6-7.6) 09/21/18 16:45 Baso % (Auto) 0.2 % (0.3-1.7) L 09/21/18 16:45 Nucleat RBC Rel Count 0.0 % (0.0-0.2) 09/21/18 16:45 Absolute Neuts (auto) 6.26 10^3/uL (1.70-6.50) 09/21/18 16:45 Absolute Lymphs (auto) 0.82 10^3/uL (1.00-3.00) L 09/21/18 16:45 Absolute Monos (auto) 1.42 10^3/uL (0.30-0.80) H 09/21/18 16:45 Absolute Eos (auto) 0.07 10^3/uL (0.03-0.40) 09/21/18 16:45 Absolute Basos (auto) 0.02 10^3/uL (0.02-0.10) 09/21/18 16:45 Absolute Nucleated RBC 0.00 10^3/uL (0-0.01) 09/21/18 16:45 Immature Gran % 0.3 % (0.0-1.1) 09/21/18 16:45 Immature Gran # 0.03 10^3/uL (0.00-0.10) 09/21/18 16:45 Sodium 141 mEq/L (135-145) 09/21/18 16:45 Potassium 4.2 mEq/L (3.5-5.2) 09/21/18 16:45 Chloride 110 mEq/L (97-110) 09/21/18 16:45 Carbon Dioxide 21 mEq/l (22-31) L 09/21/18 16:45 Anion Gap 10 mEq/L (6-14) 09/21/18 16:45 BUN 31 mg/dL (7-23) H 09/21/18 16:45 Creatinine 1.9 mg/dL (0.7-1.3) H 09/21/18 16:45 Estimated GFR 34 09/21/18 16:45 Glucose 99 mg/dL (70-100) 09/21/18 16:45 Calcium 9.5 mg/dL (8.5-10.4) 09/21/18 16:45 POC Troponin I 0.00 ng/mL (0.00-0.08) 09/21/18 16:49 Assessment & Plan Plan: 1. Pre-syncope: recent echo in June 2018 was unremarkable; LVEF 65% and asymmetrical left ventricular hypertrophy. -Consult cards to evaluate. Order placed but did not speak to occupational health nurse supervisor. -Check orthostatics Qshift -Gentle hydration over night -Hold anti-hypertensives for now -Cont tele monitoring -Cycle trop 2. CAD with history of CABG: stable, chest pain free -Cycle trops -Continue home medications of ASA, plavix and atorvastatin 3. Hypertension: labile. Reports he has been on Norvasc for at least a year but was recently placed on clonidine in June 2018 as PRN should systolic be above 180. -Cont tele monitoring -Holding anti-hypertensives for now 4. CKD -Gentle hydration over night Diet: Renal VTE ppx: SCDs Code: Full Dispo: Admit to obs <Mayra Vargas - Last Filed: 09/21/18 23:36> History and Physical - History of Present Illness Review of Systems Review of Systems: Physical Exam Physical Exam: Temp Pulse Resp BP Pulse Ox 36.8 C 91 18 118/80 92 09/21/18 20:02 09/21/18 20:02 09/21/18 20:02 09/21/18 20:02 09/21/18 20:02 Lab Data & Imaging Review 09/21/18 16:45 09/21/18 16:45 WBC 8.62 10^3/uL (3.80-9.50) 09/21/18 16:45 RBC 4.99 10^6/uL (4.40-6.38) 09/21/18 16:45 Hgb 15.6 g/dL (13.7-17.5) 09/21/18 16:45 Hct 46.5 % (40.0-51.0) 09/21/18 16:45 MCV 93.2 fL (81.5-99.8) 09/21/18 16:45 MCH 31.3 pg (27.9-34.1) 09/21/18 16:45 MCHC 33.5 g/dL (32.4-36.7) 09/21/18 16:45 RDW 12.8 % (11.5-15.2) 09/21/18 16:45 Plt Count 264 10^3/uL (150-400) 09/21/18 16:45 MPV 10.4 fL (8.7-11.7) 09/21/18 16:45 Neut % (Auto) 72.7 % (39.3-74.2) 09/21/18 16:45 Lymph % (Auto) 9.5 % (15.0-45.0) L 09/21/18 16:45 [place] % (Auto) 16.5 % (4.5-13.0) H 09/21/18 16:45 Eos % (Auto) 0.8 % (0.6-7.6) 09/21/18 16:45 Baso % (Auto) 0.2 % (0.3-1.7) L 09/21/18 16:45 Nucleat RBC Rel Count 0.0 % (0.0-0.2) 09/21/18 16:45 Absolute Neuts (auto) 6.26 10^3/uL (1.70-6.50) 09/21/18 16:45 Absolute Lymphs (auto) 0.82 10^3/uL (1.00-3.00) L 09/21/18 16:45 Absolute Monos (auto) 1.42 10^3/uL (0.30-0.80) H 09/21/18 16:45 Absolute Eos (auto) 0.07 10^3/uL (0.03-0.40) 09/21/18 16:45 Absolute Basos (auto) 0.02 10^3/uL (0.02-0.10) 09/21/18 16:45 Absolute Nucleated RBC 0.00 10^3/uL (0-0.01) 09/21/18 16:45 Immature Gran % 0.3 % (0.0-1.1) 09/21/18 16:45 Immature Gran # 0.03 10^3/uL (0.00-0.10) 09/21/18 16:45 Sodium 141 mEq/L (135-145) 09/21/18 16:45 Potassium 4.2 mEq/L (3.5-5.2) 09/21/18 16:45 Chloride 110 mEq/L (97-110) 09/21/18 16:45 Carbon Dioxide 21 mEq/l (22-31) L 09/21/18 16:45 Anion Gap 10 mEq/L (6-14) 09/21/18 16:45 BUN 31 mg/dL (7-23) H 09/21/18 16:45 Creatinine 1.9 mg/dL (0.7-1.3) H 09/21/18 16:45 Estimated GFR 34 09/21/18 16:45 Glucose 99 mg/dL (70-100) 09/21/18 16:45 Calcium 9.5 mg/dL (8.5-10.4) 09/21/18 16:45 POC Troponin I 0.00 ng/mL (0.00-0.08) 09/21/18 16:49 Troponin I < 0.012 ng/mL (0.000-0.034) 09/21/18 21:30 Assessment & Plan Assessment: Dehydration (Acute) Hypotension (Acute) Near syncope (Acute) Plan: Patient seen and evaluated independently and care plan reviewed with BENEDICTO Harris, agree with her assessment and plan as outlined above, please see separate note for further details
[2018-09-21] MEDS ORDERED: DOCUSATE SODIUM 100 MG CAP PO SCH (21:00)
[2018-09-21] MEDS ORDERED: ATORVASTATIN CALCIUM 40 MG TAB PO SCH (21:00)
--- NOTE | 2018-09-21 23:41 | HOSPPROG ---
Hospitalist Progress Note Assessment/Plan: 87 yo M with PMH of HTN, HLD, CAD, CVA presenting with pre syncope and hypotension # presyncope: similar admit several months ago, patient in ER with his when he became near syncopal and found to have low bp. Has been on amlodipine and clonidine, with clonidine being a new med for him that he self titrates. BP here has been a bit labile, but even when high has been in an age appropriate range. ECG unremarkable. Plan to monitor on tele, echo performed in June without significant valvular pathology or other explanation for syncope so will not repeat, will hold anti hypertensives for now and ask for cardiology evaluation in the am. # htn: as above BP has been intermittently quite low and even at the high end has been only around sbp of 150, will hold amlodipine and clonidine for now, cardiology consult requested # chronic medical issues: continue op meds # observation status Patient new to my care. Old records reviewed and summarized as above. CAre plan reviewed with ER doctor as above, care plan reviewed with BENEDICTO Harris, please see her H&P for further details. Objective: Vital Signs Temp Pulse Resp BP Pulse Ox 36.8 C 91 18 118/80 92 09/21/18 20:02 09/21/18 20:02 09/21/18 20:02 09/21/18 20:02 09/21/18 20:02 09/20/18 09/21/18 09/22/18 05:59 05:59 05:59 Intake Total 1000 Balance 1000 ICD10 Worksheet Patient Problems: Problems Problem Status Onset Abdominal pain Acute Acute cholecystitis Acute Lightheaded Acute Weakness Acute Hypertension Acute Near syncope Acute Hypotension Acute Dehydration Acute
[2018-09-22] MEDS ORDERED: MULTIVITAMINS 1 EACH TAB PO SCH (09:00)
[2018-09-22] MEDS ORDERED: ASPIRIN 81 MG CHEWABLE TAB PO SCH (09:00)
[2018-09-22] MEDS ORDERED: Herbals/Supplements -Info Only PO SCH (09:00)
[2018-09-22] MEDS ORDERED: CALCIUM CARBONATE 500 MG CHEWABLE TAB PO SCH (09:00)
[2018-09-22] MEDS ORDERED: CLOPIDOGREL BISULFATE 75 MG TAB PO SCH (09:00)
[2018-09-22 12:03] VITALS: BP 100/61
--- NOTE | 2018-09-22 13:11 | GDS ---
DISCHARGE DIAGNOSES: 1. Presyncope. 2. Acute kidney injury on chronic kidney disease. 3. Coronary artery disease, status post coronary artery bypass graft. 4. Left homonymous hemianopsia after coronary artery bypass graft, transient ischemic attack in 2012, chronic left peripheral vision loss. 5. Hyperlipidemia. 6. Hypertension. 7. Malignant prostate neoplasm 2004, seed implant 2008. 8. Chronic kidney disease, stage 3. 9. Ascending aorta dilatation, valvular heart disease, moderate mitral regurgitation. 10. Abdominal aortic aneurysm. HISTORY: 87-year-old male with history of CAD, status post CABG, hypertension, hyperlipidemia, prior CVA, presented to the ER with lightheadedness. He was here June of 2018, with similar symptoms. His blood pressure in the ER was 84/49. Per my interview, states he had several episodes of diarrhea the night before after eating [place] food. Denies fevers, chills, or sweats. HOSPITAL COURSE BY PROBLEM: 1. Presyncope: Suspect dehydration given history of diarrhea, decreased p.o. intake, and elevated creatinine. Creatinine improved to 1.6 today. His baseline is 1.5. He may resume Norvasc if his blood pressure is greater than 150. 2. CAD, history of CABG: Chest pain free. Troponin is negative. Continue aspirin, Plavix, and statin. 3. Hypertension: Again dose Norvasc only if blood pressure is 150 this evening. Needs to drink plenty of fluids. SAGE reeves and FU with Dr. Kelley. 4. FER on CKD: Creatinine was elevated at 1.9, now 1.6 after hydration. 5. Gait instability: This is chronic per patient. Cleared by PT/OT. DISPOSITION: Stable for discharge back to [place]. DISCHARGE INSTRUCTIONS: 1. Followup with Dr. Kelley 2. Medications: Hold Norvasc tonight if BP less than 120 3. Drink plenty of fluids. PHYSICAL EXAM: VITAL SIGNS: Today temperature afebrile, blood pressure is 126/ 75, heart rate in the 80s, respirations 16, 91% on room air. GENERAL: Well appearing in no acute distress. HEENT: PERRLA. Mildly dry mucous membranes. CV: Regular rate and rhythm. No lower extremity edema. LUNGS: Clear. ABDOMEN: Obese. Soft, nontender, nondistended. Positive bowel sounds. : No Raza., MUSCULOSKELETAL: 5/5 upper lower extremity strength. NEURO: 2 through 12 intact. PSYCH: Alert and oriented x3. TIME SPENT ON DISCHARGE: Greater than 30 minutes coordinating discharge with case management social worker, discussing case with Jerryjohn Chase with Cardiology. /[id number]/MODL MTDD
--- NOTE | 2018-09-22 14:34 | ASMTLACE ---
LACE Length of stay for Answers: 1 day current admission Acuity / Level of Answers: No Care: Did the patient have an inpatient admission? Comorbidities - select Answers: Cerebrovascular disease all that apply (CVA, TIA, aneurysms, vasc ular dementia) Mild liver or renal disease Previous myocardial infarction Other Notes: HTN # of Emergency department Answers: 3-4 visits in the last 6 months Score: 9 Date Signed: 09/22/2018 02:33 PM Electronically Signed By:Yoli Schaefer RN
--- NOTE | 2018-09-22 14:36 | ASMTCMCOM ---
CM Note CM Note Notes: Spoke with pt and dtr Gabby, PT/OT cleared pt for home. He resides at [facility] with his who is still in the hospital. CM available for any changes. DC Plan: Indepedent Date Signed: 09/22/2018 02:36 PM Electronically Signed By:Yoli Schaefer RN
--- NOTE | 2018-09-22 15:37 | GCON ---
CARDIOLOGY CONSULTATION REFERRING PHYSICIAN: Dr. Shin, [facility] o SUPERVISING PRODUCT EXPERT: Pierce Tineo MD. INDICATION FOR CARDIOLOGY CONSULTATION: Lightheadedness with noted hypotension. HISTORY OF PRESENT ILLNESS: Mr. Garcia is an 87-year-old male who is known to our practice. He has a significant past history that includes CAD with previous CABG x4 vessels in 2007, hypertension, hyperlipidemia, perioperative stroke in 2007, and more recently, September 2017 with a right thalamic stroke in the setting of hypertension urgency. He has been more recently noted to be having episodes of labile hypertension and has been treated with amlodipine at night and a p.r.n. dose of clonidine in the morning for systolics greater than 180. He reports that he always has a bit of lightheadedness with positional changes, but yesterday, he does feel that he had significantly worsened symptoms. He does inform me, 2 days ago, that he had eaten at a new [employer] food place and had several episodes of diarrhea. He reports nonbloody, he also experienced some nausea with this. This lasted for most of Wednesday night into Wednesday morning. He does state, yesterday, while in bed, he did notice some elevated heart rates, feeling a fluttering sensation in his chest. He does state that this lasted for half an hour but had no associated symptoms of lightheadedness, chest pain or shortness of breath prior or during the episode. He says he did not get out of bed with the symptoms. He does report, yesterday, when he was with his at a doctor's appointment, he did feel some wooziness. Since her doctor's offices is attached to the hospital, and at his 's urgency, he came to the emergency department for further evaluation. He was noted to have a blood pressure of 84/49 when he registered. Electrocardiogram was done noting sinus rhythm with occasional PAC, normal axis , Q-waves noted in lead III with no significant ST or T-wave abnormalities. A troponin level was done which was noted to be 0.00, but was noted to have elevated creatinine of 1.9. He had been admitted up to [facility] on continuous cardiac monitoring. There, he has maintained sinus rhythm with no malignant arrhythmias or pauses. He does report, today, that he feels significantly better after receiving intravenous fluid all night. He reports no recent history of chest pain, pressure. He denies any shortness of breath. Reports no orthopnea, PND, edema. Reports he has had no actual syncopal events. Reporting no new symptoms suggestive of TIA or CVA. Besides diarrhea, as mentioned above, he has had no fevers, chills or night sweats. PAST MEDICAL HISTORY: Patient's past medical history includes CAD with CABG x4 vessels in 2007; CVA post operative CABG; more recently, CVA of 09/2017 in which he had a right thalamic stroke in the setting of hypertension urgency, hypertension, hyperlipidemia, malignant prostate cancer, chronic renal failure class 3, ascending aortic dilation, valvular heart disease, AAA, appendectomy, sclerosis. PAST SURGICAL HISTORY: Past surgeries include CABG x4 vessels in 2007; seed implantation for prostate cancer; appendectomy; cholecystectomy; cataract surgery and knee revision. FAMILY HISTORY: Noncontributory. SOCIAL HISTORY: He lives with his at the [facility]. His medications are given by the nurse. He has 2 daughters, 1 lives in [place] with 2 granddaughters. He reports no tobacco abuse, reports no illicit drug abuse. Denies any alcohol abuse. 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 ALLERGIES: No known drug allergies. MEDICATIONS: Home medications include: 1. Clopidogrel 75 mg p.o. daily. 2. Tums 500 mg p.o. daily. 3. Colace 100 mg p.o. at bedtime. 4. Multivitamin p.o. daily. 5. Atorvastatin 40 mg p.o. at bedtime. 6. Amlodipine 5 mg p.o. at bedtime. 7. 60-80 mg p.o. daily p.r.n. 8. Aspirin 81 mg p.o. daily. 9. Clonidine 0.1 mg p.o. every a.m. p.r.n. blood pressure greater than 180. REVIEW OF SYSTEMS: A 10-point review of systems done on this patient. All negative, except as mentioned above. PHYSICAL EXAMINATION: GENERAL: Medium-built, thin, well-groomed, male. He is alert and oriented to person, place, time, situation. Appears to be under no acute distress. VITAL SIGNS: This morning, respirations were 15. Saturating 96% on room air. Temperature of 36.7 degrees Celsius. Orthostatic blood pressures done by myself showing a supine blood pressure of 115/72, heart rate of 74; sitting blood pressure of 107/60, heart rate of 73; standing blood pressure of 106/52 with heart rate of 86 beats per minute. HEENT: Head is normocephalic. Lips and tongue are pink and moist with no signs of cyanosis. Conjunctivae are pink. NECK: Trachea is midline, +2 carotid pulses bilateral. No auscultated bruits, no jugular vein distention. RESPIRATORY: Lungs are clear to auscultation. No rhonchi, rales or wheezes. No accessory muscle use. No intercostal muscle retraction noted. CARDIAC: Regular rate, regular rhythm, S1-S2, a 2/6 systolic murmur noted at left sternal border. No S3, rubs or gallops noted. ABDOMEN: Soft, nontender, bowel sounds x4 quadrants, no organomegaly, no palpable masses. SKIN: [place], warm, dry; no cyanosis, no clubbing, no peripheral edema. VASCULAR: Plus-two carotids bilateral. Plus- two radials bilateral. Plus-one dorsal pedal and posterior tibial pulses bilateral. LABORATORY STUDIES: Laboratory studies drawn on admission showed WBC of 8.62, hemoglobin of 15.6, hematocrit of 46.5, platelet count of 264. Noted on admission to have a creatinine of 1.9. AM labs today showing sodium 143, potassium 4.1, chloride 112, CO2 22, BUN 32, creatinine 1.6, glucose 87, calcium 8.9. The patient is noted to have 3 troponin levels drawn throughout the hospitalization which have all been within normal limits. STUDIES: Electrocardiogram, as mentioned above, patient is noted to have a recent echocardiogram done June 30, 2018 which showed normal LV size with asymmetric septal LV hypertrophy, normal LV systolic function, EF of 65% with no wall motion abnormalities. Was noted to have some LVOT gradient, RV normal size and function, LA is mildly dilated, RA is normal size, moderate MR, aortic sclerosis with trivial to mild AI, trivial to mild , mild TR, RVSP of 39 mmHg , aortic root measuring at 3.3 cm. Patient has also been noted to have a recent stress test in November of this year which showed no ischemia. ASSESSMENT/PLAN: 1. Lightheadedness with hypotension: Patient reporting, prior to symptoms, having significant diarrhea noted with elevated creatinine of 1.9 on admission. Gentle hydration overnight, patient has had fairly well-controlled blood pressures at this time. He has been up and walking with no further symptoms. Orthostatic blood pressures do show a 9 mm drop between supine and standing on systolic and close to 20 mm drop in diastolic pressure. All his blood pressure medications have been held since last evening. At this time, I do feel that, potentially, this was due to some dehydration due to his recent episode of diarrhea along with taking his routine blood pressure medications. Patient states he did not take his clonidine the day of symptoms. I have asked the nursing staff to get his MARs from the half-way facility for evaluation of his medications. I recommend that we place on SAGE hose, I have encouraged him to take time with positional changes. I would hold his clonidine, and if his blood pressure does elevate, then, reestablish on his amlodipine. 2. Coronary artery disease: Patient with a history of CAD, reports no chest pain or pressure throughout his episodes of lightheadedness. He has had negative troponins x3, and he has had an MPI study within the last year which showed no ischemia. Continue on current anti-platelet therapy of aspirin and Plavix. He is on atorvastatin for secondary risk prevention. 3. Palpitations: Patient reporting brief episodes of palpitations yesterday morning with no associated symptoms. He does note to have mild atrial enlargement on most recent echocardiogram. no arrhythmias have been noted on continuous cardiac monitoring since hospitalization. I have ordered for him to get a TSH level. I would like him to do a 48-hour Holter monitor for evaluation of arrhythmia as an outpatient. 4. Hypertension: Patient noting to have labile blood pressures over the last year, currently, blood pressures are on hold, will continue to evaluate with reconsideration of starting amlodipine as mentioned above. 5. Chronic kidney disease: Patient came in with an elevated creatinine of 1.9 , potentially due to dehydration, and hypotension, improvement with intravenous gentle hydration last evening, noting his normal baseline is between 1.3 to 1.5 , today at 1.6. 6. Hyperlipidemia: Continue on statin therapy. Thank you for this consultation. Will be glad to follow along with you. /[id number]/MODL MTDD
== END 2018-09-22 16:22 | disposition home or self-care (01) ==
LOC: F3E 19:45
PROVIDERS: ADMIT Internal Medicine; ATTEND Internal Medicine
DX: I95.9 Hypotension, unspecified (principal); E86.0 Dehydration; N17.9 Acute kidney failure, unspecified; N18.3 Chronic kidney disease, stage 3 (moderate); I12.9 Hypertensive chronic kidney disease with stage 1 through stage 4 chronic kidney disease, or unspecified chronic kidney disease; I25.10 Atherosclerotic heart disease of native coronary artery without angina pectoris; I34.0 Nonrheumatic mitral (valve) insufficiency; E78.5 Hyperlipidemia, unspecified; I71.4 Abdominal aortic aneurysm, without rupture; I69.398 Other sequelae of cerebral infarction; H53.462 Homonymous bilateral field defects, left side; Z95.1 Presence of aortocoronary bypass graft; Z85.46 Personal history of malignant neoplasm of prostate; R26.9 Unspecified abnormalities of gait and mobility
CPT/HCPCS: 93005; 97162; 97165; 99285; G0378; 84484-ER

== ENCOUNTER → 2019-01-02 | Outpatient (CLI) | payer OTHER ==
[~2019-01-02] MED LIST: IOPAMIDOL (ISOVUE 370) 100 ML BTL IV ONE
== END ==
LOC: FIMAGING 11:51
PROVIDERS: ATTEND Physician Assistant Medical
DX: I71.4 Abdominal aortic aneurysm, without rupture (principal); I72.3 Aneurysm of iliac artery; N18.9 Chronic kidney disease, unspecified
CPT/HCPCS: 74175; Q9967; 82565-PO

== ENCOUNTER → 2019-01-05 | Outpatient (CLI) | payer OTHER | LOC: FIMAGING 17:07 | PROVIDERS: ATTEND Radiology Diagnostic Radiology | DX: I71.4 Abdominal aortic aneurysm, without rupture (principal); I12.9 Hypertensive chronic kidney disease with stage 1 through stage 4 chronic kidney disease, or unspecified chronic kidney disease; N18.3 Chronic kidney disease, stage 3 (moderate); E78.5 Hyperlipidemia, unspecified; C61 Malignant neoplasm of prostate; I25.10 Atherosclerotic heart disease of native coronary artery without angina pectoris; Z90.49 Acquired absence of other specified parts of digestive tract; Z90.89 Acquired absence of other organs ==

== ENCOUNTER 2019-01-31 19:49 | Emergency (ER) | payer OTHER | END 2019-01-31 20:46 | disposition home or self-care (01) ==